=== PATIENT | male | born 1965 | race Caucasian/White ===

== ENCOUNTER 2020-10-06 07:56 | Emergency (ER) | payer MEDICAID, SELFPAY ==
[2020-10-06] VITALS (10 sets, daily range): BP systolic 101–122; BP diastolic 66–84; PULSE 65–102; RESP 16–20; TEMP 36.6; O2SAT 96–98; BMI 20.7
--- NOTE | 2020-10-06 08:12 | HMH.EDGENADL ---
ED Disposition Clinical Impression: COVID-19 virus infection, Lung mass Disposition: Left Against Medical Advice Condition on Discharge: Good Instructions: DI for COVID-19 (Suspected or Confirmed ) Additional Instructions: Quarantine for 10 days. Return to the emergency room if any severe shortness of breath, severe weakness, vomiting and unable to hold down medications. Levaquin as prescribed for possible pneumonia. Follow-up with your primary care provider to have a CT scan of your chest to further evaluate for a possible lung mass. Prescriptions: levoFLOXacin [Levaquin 750mg tablet] 750 mg PO DAILY #5 tab Transmission Status: Pending to [facility] Referrals: Moraima De [Primary Care Provider] - - Critical Care Critical Care Time: No Attestation: On , the high probability of a clinically significant, sudden or life threatening deterioration of the following system(s) required my full and direct attention, intervention and personal management. The time I documented below is in addition to time spent performing reported procedures but includes the following listed in this critical care notation. Medical Decision Making - Armando Inquiry Pt receiving controlled substance: No Vital Signs: 10/06/20 08:05 10/06/20 08:29 10/06/20 08:41 Temperature 97.8 F Temperature Source Oral Pulse Rate [Right] 79 65 80 Respiratory Rate 16 18 20 Blood Pressure [Right Arm] 112/84 122/80 122/80 Blood Pressure Mean [Right Arm] 93 94 94 Blood Pressure Source [Right Arm] Automatic Cuff Automatic Cuff Automatic Cuff Blood Pressure Position [Right Arm] Sitting Sitting Sitting 02 Sat by Pulse Oximetry 98 98 98 Oxygen Delivery Method Room Air Room Air 10/06/20 09:26 10/06/20 09:56 10/06/20 10:11 Temperature Temperature Source Pulse Rate [Right] 71 74 68 Respiratory Rate 18 18 18 Blood Pressure [Right Arm] 120/80 101/69 L 109/70 L Blood Pressure Mean [Right Arm] 93 79 83 Blood Pressure Source [Right Arm] Automatic Cuff Automatic Cuff Automatic Cuff Blood Pressure Position [Right Arm] Sitting Supine Sitting 02 Sat by Pulse Oximetry 98 98 97 Oxygen Delivery Method Room Air 10/06/20 10:30 10/06/20 11:00 10/06/20 12:00 Temperature Temperature Source Pulse Rate [Right] 70 74 80 Respiratory Rate 20 18 20 Blood Pressure [Right Arm] 114/72 110/66 115/79 Blood Pressure Mean [Right Arm] 86 80 91 Blood Pressure Source [Right Arm] Automatic Cuff Automatic Cuff Automatic Cuff Blood Pressure Position [Right Arm] Sitting Sitting Supine 02 Sat by Pulse Oximetry 97 97 97 Oxygen Delivery Method Room Air Room Air - Lab Data Lab Results 10/06/20 08:12: WBC 12.9 H, RBC 4.79, Hgb 14.6, Hct 43.5, MCV 90.9, MCH 30.5, MCHC 33.6, RDW 14.3, Plt Count 388, MPV 7.3 L, Neut % (Auto) 76.7, Lymph % (Auto) 16.5, Howard % (Auto) 5.0, Eos % (Auto) 1.3, Baso % (Auto) 0.7, Neut # (Auto) 9.9 H, Lymph # (Auto) 2.1, Howard # (Auto) 0.6, Eos # (Auto) 0.2, Baso # (Auto) 0.1 10/06/20 08:12: Sodium 134 L, Potassium 4.0, Chloride 99, Carbon Dioxide 31 H, Anion Gap 8.0, BUN 3 L, Creatinine 0.80, Estimated Creat Clear 93, Estimated GFR 100, Est GFR ( Amer) 121, Glucose 128 H, Calcium 9.1 10/06/20 08:12: SARS-CoV-2 IgG Ab (Rapid) Negative, SARS-CoV-2 IgM Ab (Rapid) Negative 10/06/20 08:12: Total Bilirubin 0.5, Direct Bilirubin 0.2, Conjugated Bilirubin 0.0, Indirect Bilirubin 0.3, Unconjugated Bilirubin 0.2, AST 35, ALT 25, Alkaline Phosphatase 84, Total Protein 7.2, Albumin 4.0 10/06/20 08:40: Influenza Type A Ag Negative, Influenza Type B Ag Negative 10/06/20 09:25: Urine Color Yellow, Urine Appearance Clear, Urine pH 8.0, Ur Specific [place] 1.010, Urine Protein Negative, Urine Glucose (UA) Negative, Urine Ketones Negative, Urine Blood Negative, Urine Nitrate Negative, Urine Bilirubin Negative, Urine Urobilinogen 0.2, Ur Leukocyte Esterase Negative, Urine RBC None, Urine WBC None, Ur Squamous Epith Cells None, Urine Bacteria None
[2020-10-06 08:30] LABS: Basophils # 0.1 K/mm3 (0-0.2); Basophils % 0.7 % (0.1-2.0); Eosinophils # 0.2 K/mm3 (0.0-0.4); Eosinophils % 1.3 % (0.1-12.0); Hematocrit 43.5 % (42.0-52.0); Hemoglobin 14.6 g/dL (14.1-18.0); Lymphocytes # 2.1 K/mm3 (0.7-4.5); Lymphocytes % 16.5 % (10-50); Mean Corpuscular HGB Conc 33.6 g/dL (31.8-35.4); Mean Corpuscular Hemoglobin 30.5 pg (27.0-31.2); Mean Corpuscular Volume 90.9 fl (80-94); Mean Platelet Volume 7.3 fl (7.4-10.4); Monocytes # 0.6 K/mm3 (0.1-1.0); Neutrophils # 9.9 K/mm3 (1.8-7.8); Neutrophils % 76.7 % (37.0-80.0); Platelet Count 388 K/mm3 (142-424); Red Blood Count 4.79 M/mm3 (4.60-6.20); Red Cell Distribution Width 14.3 % (11.5-17.5); White Blood Count 12.9 K/mm3 (4.8-10.8)
--- NOTE | 2020-10-06 08:38 | CT_ITS ---
Procedure: CT ABDOMEN PELVIS W CON Referring Doctor: Lang Aguilar Patient Age:55Y CLINICAL INDICATION: abdo pain, RLQ tenderness COMPARISON: No exams were available for comparison TECHNIQUE: 70 cc 7 IV contrast but no oral contrast given Helical axial images obtained with sagittal and coronal reformats. All CT scans at the facility use one or more dose reduction, viz: automated exposure control, ma/kV adjustment per patient size (including targeted exams where dose is matched to indication, i.e. head), or iterative reconstruction technique. FINDINGS: Lower thorax: The most likely atelectasis accounts for minimal density right posterior sulcus at the posterior RLL posterior sulcus. Underlying emphysematous changes noted. Heart normal size 2 ABDOMEN: Liver: No masses or biliary dilatation. Mild fatty changes liver a. Liver upper normal in size the the left lobe extending beneath the left hemidiaphragm the Gallbladder: Nondistended. No radio opaque stones. The common duct normal the the the Pancreas: No masses or peripancreatic fluid collections. Spleen: unremarkable the Adrenals: unremarkable tract Both kidneys appears satisfactory-no calculi nor obstruction. Normal renal enhancement. Ureters unremarkable. Urinary bladder.-Mild diffuse wall thickening suggest correlating with urinalysis is could reflect a cystitis but prostate, moderate size of 4.1 cm transverse the. ---GI tract. Stomach: Generous wall thickness stomach with mild enhancement of the gastric wall appearance could reflect gastritis but more most likely reflects lack distension. Duodenal loop unremarkable. Small bowel: No significant findings. Terminal ileum region satisfactory, unremarkable Large bowel. No acute findings. Minimal stool throughout the colon there may a few tiny early diverticuli but minimal unimpressive. Generous wall thickness of the descending colon most likely reflecting its lack of distension.. Appendix is retrocecal and appears normal with no appendicitis evident Peritoneum: No abnormal fluid collections. No obvious inflammatory changes. No free air. Lymph nodes: No enlarged lymph nodes apparent. Vasculature: Atherosclerotic calcification aorta and iliacs the.. Generous caliber mild distended IVC a-nonspecific. The a. No retroperitoneal hemorrhage evident. Bones: No acute fracture. No lesions. The the the the the the the the the the IMPRESSION: . Appendix visualized and normal the no acute findings right lower quadrant . Mild diffuse wall thickening urinary bladder which could reflect cystitis-recommend correlation with urinalysis the . Generous wall thickness of the stomach with mild enhancement; most likely merely reflecting lack of distension of stomach but of conceivably could reflect a mild gastritis. Clinical correlation required Dictated by: Perfecto Pompa MD 10/06/2020 09:44 Perfecto Pompa MD in [place] 10/06/2020 09:44
--- NOTE | 2020-10-06 08:38 | XR_ITS ---
PROCEDURE: XR CHEST 2V CLINICAL HISTORY: cough COMPARISON: No exams were available for comparison FINDINGS: The cardiomediastinal silhouette and pulmonary vascularity are within normal limits. The lungs are clear without infiltrates, suspicious nodules, or pleural effusions. There are mild streaky opacities in the right upper lobe and right apex likely representing postinflammatory scarring however there is a strong clinical suspicion of possible pneumonia a lordotic film of the chest would be helpful for better evaluation. No acute bony abnormalities. IMPRESSION: Probable postinflammatory scarring right apex however see discussion above regarding the follow-up a lordotic chest Dictated by: Dr. Sebastian Soto MD 10/06/2020 09:55 Dr. Sebastian Soto MD in [place] 10/06/2020 09:55
[2020-10-06 08:42] LABS: Blood Urea Nitrogen 3 mg/dl (9-20); Calcium 9.1 mg/dl (8.4-10.2); Carbon Dioxide 31 mmol/L (22.0-30.0); Chloride 99 mmol/L (98-107); Creatinine Clearance Estimated 93 mL/min (50-200); Estimated Glomerular Filt Rate 100 ml/min (>60); GFR (African American) 121 ML/MIN (>60); Glucose 128 mg/dl (74-100); Sodium 134 mmol/L (136-145)
[2020-10-06 09:11] LABS: Coronavirus 19 IgG Antibody Negative (Negative); Coronavirus 19 IgM Antibody Negative (Negative)
[2020-10-06 09:26] LABS: Alanine Aminotransferase 25 U/L (12-78); Alkaline Phosphatase 84 U/L (38-126); Aspartate Amino Transferase 35 U/L (17-59); Bilirubin,Direct 0.2 mg/dl (0.0-0.4); Bilirubin,Indirect 0.3 mg/dL (0.0-0.9); Bilirubin,Total 0.5 mg/dl (0.2-1.3); Bilirubin,Unconjugated 0.2 mg/dL (0.0-1.1); Total Protein,Serum 7.2 g/dl (6.3-8.2)
[2020-10-06 09:37] LABS: Microscopic, Urine URINE MICROSCOPIC (MICROSCOPIC)
[2020-10-06 09:41] LABS: Appearance,Urine CLEAR (Clear); Bilirubin,Urine Negative (Negative); Blood, Urine Negative (Negative); Color,Urine YELLOW (Yellow); Glucose,Urine (UA) Negative (Negative); Ketones,Urine Negative (Negative); Leukocyte Esterase,Urine Negative (Negative); Nitrate,Urine Negative (Negative); Protein,Urine Negative (Negative); Urobilinogen,Urine 0.2 EU/dl (0.2)
--- NOTE | 2020-10-06 10:05 | XR_ITS ---
PROCEDURE: XR CHEST W APICAL LORDOTIC CLINICAL HISTORY: scarring vs infiltrate apex, radiologist recomm. COMPARISON: CR XR CHEST 2V from 10/06/2020 FINDINGS: The lordotic projection allows better visualization of the lung apices and there is an apparent mass right upper lobe with somewhat ill-defined borders with streaky opacities extending from the right hilum superiorly to the mass. Certainly a developing neoplastic process cannot be excluded possibly with some surrounding pneumonitis. Suggest follow-up nonemergent CT scan of the chest for better evaluation. IMPRESSION: Probable right upper lobe mass with possible associated pneumonitis Dictated by: Dr. Sebastian Soto MD 10/06/2020 11:36 Dr. Sebastian Soto MD in [place] 10/06/2020 11:36
--- NOTE | 2020-10-06 11:16 | PC.NURSE ---
Notified pt positive for covid
== END 2020-10-06 13:15 | disposition left against medical advice (07) ==
PROVIDERS: Emergency Provider Emergency Medicine; PCP Family Medicine
DX: U07.1 COVID-19 (principal); R91.1 Solitary pulmonary nodule; F17.210 Nicotine dependence, cigarettes, uncomplicated
CPT/HCPCS: 71046; 71047; 74177; 80048; 80076; 81001; 85025; 86328; 87275; 87276; 96365; 96375; 99284; J2405; Q9967; U0003

== ENCOUNTER 2021-05-26 14:17 | Emergency (ER) | payer MEDICAID, SELFPAY ==
[2021-05-26 14:19] VITALS: BP 100/50; PULSE 101; RESP 18; TEMP 36.7; O2SAT 97; BMI 22.6
--- NOTE | 2021-05-26 15:00 | XR_ITS ---
PROCEDURE INFORMATION: Exam: XR Left Ankle Exam date and time: 05/26/2021 3:00 PM Age: 56 years old Clinical indication: Patient HX: Left ankle pain for a week, no known injury. PT said he stands a lot. TECHNIQUE: Imaging protocol: XR Left ankle. Views: 3 or more views. COMPARISON: CR XR TIBIA FIBULA LT 2V 05/26/2021 3:01 PM FINDINGS: Bones/joints: Normal. Soft tissues: Normal. IMPRESSION: No acute findings.
--- NOTE | 2021-05-26 15:00 | XR_ITS ---
PROCEDURE INFORMATION: Exam: XR Left Tibia and Fibula Exam date and time: 05/26/2021 3:00 PM Age: 56 years old Clinical indication: Patient HX: Pain in left lower leg for a week, no known injury. TECHNIQUE: Imaging protocol: XR Left tibia and fibula. Views: 2 views. COMPARISON: No relevant prior studies available. FINDINGS: Bones/joints: No acute fracture. No dislocation. Soft tissues: Normal. IMPRESSION: No acute findings.
--- NOTE | 2021-05-26 16:16 | HMH.EDEXTP ---
ED Disposition Clinical Impression: Strain of left calf muscle Left ankle sprain Qualifiers: Encounter type: initial encounter Involved ligament of ankle: other ligament Qualified Code(s): S93.492A - Sprain of other ligament of left ankle, initial encounter Disposition: Home, Self-Care Condition on Discharge: Good Instructions: DI for Muscle Strain Prescriptions: Ibuprofen [Ibuprofen 800mg Tablet] 800 mg PO TIDP PRN #20 tab PRN Reason: Moderate Pain Transmission Status: Pending to [facility] Referrals: Moraima De [Primary Care Provider] - - Critical Care Critical Care Time: No Attestation: On 05/26/21, the high probability of a clinically significant, sudden or life threatening deterioration of the following system(s) required my full and direct attention, intervention and personal management. The time I documented below is in addition to time spent performing reported procedures but includes the following listed in this critical care notation. Medical Decision Making - Medical Records Medical records reviewed: Yes: I reviewed the patient's medical records. - Armando Inquiry Pt receiving controlled substance: No Vital Signs: 05/26/21 14:19 Temperature 98.1 F Temperature Source Oral Pulse Rate [Right] 101 H Respiratory Rate 18 Blood Pressure [Right Arm] 100/50 L Blood Pressure Mean [Right Arm] 66 02 Sat by Pulse Oximetry 97 Orders (Tests/Meds): ED MEDICATIONS Discontinued Medications Generic Name Dose Route Start Last Admin Trade Name Freq PRN Reason Stop Dose Admin Ibuprofen 800 mg 05/26/21 15:00 Ibuprofen 400 Mg Tablet PO 05/26/21 15:01 ONCE ONE - Radiology Data #1 Image(s): Tib/Fib, Ankle Image Reviewed: Yes I reviewed the patient's radiology results, Yes I reviewed the patient's radiology image, Yes I have reviewed radiologist's interpretation Preliminary Findings: Normal/NAD, No Fracture Seen - Reevaluation(s) Time: 16:19 Reevaluation #1: On reevaluation, the patient is feeling much better. Pain improved. X-rays unremarkable. Patient to follow-up with PCP in 48 hours. Given strict return precautions. Verbalized understanding. Medical Decision Narrative: 56-year-old male presented to the emergency department with some left leg pain. Patient has had overuse injuries lately. Patient be musculoskeletal in nature. No asymmetrical swelling. Work-up initiated. Extremity Problem HPI - General Chief complaint: Extremity Injury, Lower Stated complaint: ankle pain up to the thigh area, and left shoulder Time Seen by Provider: 05/26/21 14:25 Mode of Arrival: Family Vehicle Limitations: No Limitations Description of Symptoms (Recalled from ER Triage Doc. by RN): Patient c/o left leg pain without injury for the last four days. Patient reports the pain originated in the ankle and has migrated to the thigh. Upon assessment, patient has no pain in calve with palpation and does not appear to have redness in left leg. Patient ambulatory in ED triage to patient room. - History of Present Illness HPI Narrative: This is a 56-year-old male presented to the emergency department with a left lower extremity discomfort. Patient states that he has been walking an increased amount over the last 4 days. States that his pain in his left calf has been worsening. States that it is worse when he walks. He denies any direct trauma, but has had significant overuse compared to normal. He states that it is a dull pain that radiates in his left To the top of the left calf and down into the ankle. Patient is still able to walk, however does elicit some pain. He is not have any associated chest pain or shortness of breath. No cough or hemoptysis. No headache or change in vision. No focal weakness. No fevers or chills. - Related Data Previous Rx's Medication Instructions Recorded levoFLOXacin [Levaquin 750mg 750 mg PO DAILY #5 tab 10/06/20 tablet
[2021-05-26 16:35] VITALS: BP 132/73; PULSE 76; RESP 16; TEMP 36.8; O2SAT 98
== END 2021-05-26 16:41 | disposition home or self-care (01) ==
PROVIDERS: Emergency Provider Emergency Medicine; PCP Family Medicine
DX: S93.492A Sprain of other ligament of left ankle, initial encounter (principal)
CPT/HCPCS: 73590; 73610; 99282

== ENCOUNTER → 2021-06-12 09:28 | Outpatient (CLI) | payer MEDICAID, SELFPAY ==
--- NOTE | 2021-06-12 09:33 | XR_ITS ---
PROCEDURE: XR WRIST LT MIN 3V CLINICAL INDICATION: left wrist pain COMPARISON: No exams were available for comparison FINDINGS: No fracture or dislocation. No lytic or blastic change. There is normal mineralization. There are mild osteoarthritic changes at the scapho trapezium joint and 1st metacarpal-carpal joint Other findings:None. IMPRESSION: Minimal osteoarthritic change Dictated by: Lenin Davies MD 06/12/2021 11:54 Lenin Davies MD in [place] 06/12/2021 11:54
== END ==
PROVIDERS: PCP Family Medicine; Visit Provider Orthopaedic Surgery
DX: M25.532 Pain in left wrist (principal)
CPT/HCPCS: 73110

== ENCOUNTER 2021-06-12 10:56 | Outpatient (RCR) | payer MEDICAID, SELFPAY | END 2021-06-12 12:00 | disposition home or self-care (01) | LOC: OT 10:56 | PROVIDERS: Visit Provider Orthopaedic Surgery | DX: M25.532 Pain in left wrist (principal); R20.0 Anesthesia of skin | CPT/HCPCS: 97763 ==

== ENCOUNTER → 2021-07-05 09:09 | Outpatient (CLI) | payer MEDICAID, SELFPAY ==
--- NOTE | 2021-07-05 09:13 | US_ITS ---
APPROVED REPORT Exam Type: Lower Extremity Segmental Pressures Harvesting Supervisor: Sunshine Mae RVT Indications Claudication: Left Rest Pain: Left Current Smoker CLAUDICATION LLE,COLD LT FOOT Risk Factors Current Smoker Pressures/Indices Right Indices Left Indices Brachial 113.00 mmHg Brachial 108.00 mmHg Low Thigh 116.00 mmHg 1.03 Low Thigh 57.00 mmHg 0.50 Calf 112.00 mmHg 0.99 Calf 53.00 mmHg 0.47 Ankle(PT) 116.00 mmHg 1.03 Ankle(PT) 43.00 mmHg 0.38 Ankle(DP) 114.00 mmHg 1.01 Ankle(DP) 33.00 mmHg 0.29 Digit 70.00 mmHg 0.62 Digit 25.00 mmHg 0.22 Findings RT ANGEL:1.03 LT ANGEL:0.38 RT TBI:0.62 LT TBI:0.22 NORMAL PULSES ON THE RIGHT DECREASED PULSES ON THE LEFT DAMPANED WAVEFORMS ON THE LEFT. NORMAL WAVEFORMS ON THE RIGHT SEVERE ARTERIAL DISEASE OF THE LEFT LOWER EXTREMITY. Conclusion RT ANGEL:1.03 LT ANGEL:0.38 RT TBI:0.62 LT TBI:0.22 NORMAL PULSES ON THE RIGHT DECREASED PULSES ON THE LEFT DAMPANED WAVEFORMS ON THE LEFT. NORMAL WAVEFORMS ON THE RIGHT SEVERE ARTERIAL DISEASE OF THE LEFT LOWER EXTREMITY. Electronically signed by : Lenin Davies MD 07/05/2021 09:47:41
== END ==
PROVIDERS: PCP Family Medicine; Visit Provider Family Medicine
DX: I70.213 Atherosclerosis of native arteries of extremities with intermittent claudication, bilateral legs (principal)
CPT/HCPCS: 93923

== ENCOUNTER 2021-12-05 13:46 | Emergency (ER) | payer MEDICAID, SELFPAY ==
[2021-12-05 13:47] VITALS: BP 114/79; PULSE 92; RESP 18; TEMP 36.9; O2SAT 98; BMI 22.7
[2021-12-05 14:00] VITALS: BP 111/83; PULSE 88; RESP 18; O2SAT 99
--- NOTE | 2021-12-05 14:28 | XR_ITS ---
FINAL REPORT CLINICAL HISTORY: pain FINDINGS: LEFT SHOULDER Three views demonstrate no acute fracture or dislocation. There is mild acromioclavicular and glenohumeral joint degenerative change. The visualized bony structures are well aligned. No soft tissue abnormality is seen. IMPRESSION: Mild degenerative changes. Reviewed, Interpreted and Dictated by Kings Pittman III, MD Transcribed by Rosa Dailey Authenticated by Kings Pittman III, MD on 12/05/2021 03:35:28 PM [facility]
[2021-12-05 14:30] VITALS: BP 118/88; PULSE 82; O2SAT 98
--- NOTE | 2021-12-05 14:36 | PC.NURSE ---
Pt returned from Rad
[2021-12-05 14:37] VITALS: BP 127/90; PULSE 80; O2SAT 98
--- NOTE | 2021-12-05 14:39 | HMH.EDGENADL ---
ED Disposition Clinical Impression: Left shoulder strain Qualifiers: Encounter type: initial encounter Qualified Code(s): S46.912A - Strain of unspecified muscle, fascia and tendon at shoulder and upper arm level, left arm, initial encounter Disposition: Home, Self-Care Condition on Discharge: Good Instructions: DI for Shoulder Sprain Prescriptions: Ibuprofen [Ibuprofen 800mg Tablet] 800 mg PO TIDP PRN #20 tab PRN Reason: Moderate Pain Transmission Status: Pending to [facility] methocarbamoL [Methocarbamol 500mg Tablet] 1,000 mg PO TID 10 Days #60 tab Transmission Status: Pending to [facility] Referrals: Provider,MD Jesus [Primary Care Provider] - Yayo Ventura MD [Staff Physician] - - Critical Care Critical Care Time: No Attestation: On 12/05/21, the high probability of a clinically significant, sudden or life threatening deterioration of the following system(s) required my full and direct attention, intervention and personal management. The time I documented below is in addition to time spent performing reported procedures but includes the following listed in this critical care notation. Medical Decision Making - Medical Records Medical records reviewed: Yes: I reviewed the patient's medical records. - Armando Inquiry Pt receiving controlled substance: Yes Armando was queried for this patient: No Reason not queried -: Emergent pt cond-no time Risks and benefits of using a controlled substance: were discussed with pt by me Vital Signs: 12/05/21 13:47 12/05/21 14:00 12/05/21 14:30 Temperature 98.4 F Temperature Source Oral Pulse Rate 88 82 Pulse Rate [Right Radial] 92 H Respiratory Rate 18 18 Blood Pressure 111/83 118/88 Blood Pressure [Right Arm] 114/79 Blood Pressure Mean 91 Blood Pressure Mean [Right Arm] 90 Blood Pressure Source [Right Arm] Automatic Cuff Blood Pressure Position [Right Arm] Sitting 02 Sat by Pulse Oximetry 98 99 98 Oxygen Delivery Method Room Air 12/05/21 14:37 Temperature Temperature Source Pulse Rate 80 Pulse Rate [Right Radial] Respiratory Rate Blood Pressure 127/90 Blood Pressure [Right Arm] Blood Pressure Mean Blood Pressure Mean [Right Arm] Blood Pressure Source [Right Arm] Blood Pressure Position [Right Arm] 02 Sat by Pulse Oximetry 98 Oxygen Delivery Method Orders (Tests/Meds): ED MEDICATIONS Discontinued Medications Generic Name Dose Route Start Last Admin Trade Name Ines PRN Reason Stop Dose Admin Hydrocodone Bitart/Acetaminophen 2 tab 12/05/21 14:28 12/05/21 14:37 Hydrocodone/Apap 5/325 Mg Tablet PO 12/05/21 14:29 2 tab ONCE ONE Administration Methocarbamol 1,000 mg 12/05/21 14:28 12/05/21 14:38 Methocarbamol 500mg Tablet PO 12/05/21 14:29 1,000 mg ONCE STA Administration - Radiology Data #1 Image(s): Shoulder Image Reviewed: Yes I reviewed the patient's radiology results, Yes I reviewed the patient's radiology image, Yes I have reviewed radiologist's interpretation IMPRESSION: Mild degenerative changes. - Reevaluation(s) Time: 15:39 Reevaluation #1: On reevaluation, the patient's pain is improved. There is no obvious deformity on x-ray. Has some chronic degenerative changes. Patient will follow up with orthopedic surgery. Given strict return precautions. Verbalized understanding. Medical Decision Narrative: 56-year-old male presented with some left shoulder pain. Pain is reproducible on passive range of motion. I do believe patient has bony injury versus rotator cuff tear. Patient provided analgesics and muscle relaxers. Work-up initiated. General Adult HPI - General Chief complaint: PAIN Stated complaint: lt arm weakness/pain Time Seen by Provider: 12/05/21 13:50 Mode of Arrival: Ambulatory Limitations: No Limitations Description of Symptoms (Recalled from ER Triage Doc. by RN): Pt c/o left shoulder pain that began last night.
[2021-12-05 16:09] VITALS: BP 112/57; PULSE 79; RESP 16; TEMP 36.6; O2SAT 98
== END 2021-12-05 16:10 | disposition home or self-care (01) ==
PROVIDERS: Emergency Provider Emergency Medicine
DX: S43.402A Unspecified sprain of left shoulder joint, initial encounter (principal); M79.622 Pain in left upper arm; M62.512 Muscle wasting and atrophy, not elsewhere classified, left shoulder; F17.210 Nicotine dependence, cigarettes, uncomplicated; Z79.899 Other long term (current) drug therapy; Z88.5 Allergy status to narcotic agent
CPT/HCPCS: 73030; 99283

== ENCOUNTER 2022-02-25 11:58 | Emergency (ER) | payer MEDICAID, SELFPAY ==
[2022-02-25 12:10] VITALS: BP 112/78; PULSE 84; RESP 19; TEMP 36.8; O2SAT 99; BMI 22.5
--- NOTE | 2022-02-25 12:13 | XR_ITS ---
FINAL REPORT CLINICAL HISTORY: pain and swelling FINDINGS: AP, oblique, and lateral views of the right ankle were obtained. There is no prior exam for comparison. There is no fracture or dislocation. The ankle mortise is intact. There is mild lateral soft tissue edema which is nonspecific. IMPRESSION: Mild lateral soft tissue edema without acute osseous abnormality of the right ankle. Reviewed, Interpreted and Dictated by Kim Matamoros MD Transcribed by Maggie Goode Authenticated by Kim Matamoros MD on 02/25/2022 01:17:[address] [facility]
--- NOTE | 2022-02-25 12:49 | HMH.EDUTC ---
[facility] Disposition Clinical Impression: Right ankle sprain Qualifiers: Encounter type: initial encounter Involved ligament of ankle: unspecified ligament Qualified Code(s): S93.401A - Sprain of unspecified ligament of right ankle, initial encounter Disposition: Home, Self-Care Condition on Discharge: Good Instructions: How to Choose and Use a Cane, How to Use a Walking Boot Additional Instructions: *weight bearing as tolerated *RICE, Rest the extremity, Ice 15-20 minutes 3-4 times daily, Compress- wear the rigo wrap as discussed as much as possible to help reduce swelling and pain, Elevate the extremity when at rest *Walking boot is for support and help control swelling, use it except in the shower. Be sure that is not to tight but not to loose either *Elevate when resting *Ibuprofen as directed every 6-8 hours as needed for pain an inflammation. If need something more can take Tylenol in between doses of Ibuprofen to help Immediately follow up with your family doctor for new or worsening of symptoms, or no noticeable improvement over the next 3-5 days Follow up with Family Doctor for further evaluation and testing if no improvement Return if needed Straight to ER if any life threatening symptoms Referrals: Gordy Watson [Primary Care Provider] - As needed Time of Disposition: 13:33 Medical Decision Making - Armando Inquiry Pt receiving controlled substance: No Armando was queried for this patient: No Vital Signs: 02/25/22 12:10 02/25/22 13:43 Temperature 98.2 F 98.2 F Temperature Source Oral Pulse Rate 84 Pulse Rate [Right Brachial] 84 Respiratory Rate 19 19 Blood Pressure 112/78 Blood Pressure [Right Arm] 112/78 Blood Pressure Mean [Right Arm] 89 Blood Pressure Source [Right Arm] Automatic Cuff Blood Pressure Position [Right Arm] Sitting 02 Sat by Pulse Oximetry 99 Oxygen Delivery Method Room Air - Lab Data Lab results reviewed: Yes: I reviewed the patient's lab results. Lab Results 02/25/22 12:30: Uric Acid 3.4 L - Radiology Data #1 Image(s): Ankle Image Reviewed: Yes I have reviewed radiologist's interpretation IMPRESSION: Mild lateral soft tissue edema without acute osseous abnormality of the right ankle. Medical Decision Narrative: DIscussed with patient and recommended Venous Doppler due to history of DVT and patient declined states that he didnt want it and didnt feel like it did when he had one before and patient educated and advised of risks even and still declined Venous Doppler States that he may have stepped in hole and he would follow up with Family Doctor if no improvement [facility] HPI - General Stated complaint: lt leg/foot pain and swelling Time Seen by Provider: 02/25/22 12:25 Mode of Arrival: Ambulatory Source of Information: Patient Limitations: No Limitations Description of Symptoms (Recalled from Triage Doc. by RN): PATIENT C/O PAIN AND SWELLING TO RIGHT ANKLE SINCE YESTERDAY HEENT Symptoms (Recalled from RN notes): No Resp Symptoms (Recalled from RN notes): No Skin Symptoms (Recalled from RN notes): No MS Symptoms (Recalled from RN notes): Yes Functional Status (Recalled from RN notes): WNL - History of Present Illness Provider Complaint: Patient states that he was walking fine day before yesterday and yesterday morning but when he woke up he was having pain and swelling in his right ankle and hurt when he would try to walk on it States that he doesnt recall doing anything to hurt it States that he came in to get it checked out - Related Data Allergies Allergy/AdvReac Type Severity Reaction Status Date / Time codeine Allergy Mild Verified 06/25/21 13:51 - Worker's Comp Is this a Worker's Comp case?: No [facility] History - Hepatitis A Screen Attestation statement:: This patient has been screened for Hepatitis A risk factors. I have reviewed the patient's past medical history: Yes Other Surgeries: Yes: No Previous Surgery Comment: Left hand rodríguez
[2022-02-25 12:58] LABS: Uric Acid 3.4 mg/dl (3.5-8.5)
[2022-02-25 13:43] VITALS: BP 112/78; PULSE 84; RESP 19; TEMP 36.8; O2SAT 99
== END 2022-02-25 13:46 | disposition home or self-care (01) ==
PROVIDERS: Emergency Provider Nurse Practitioner; PCP Family Medicine
DX: S93.401A Sprain of unspecified ligament of right ankle, initial encounter (principal); Z88.6 Allergy status to analgesic agent
CPT/HCPCS: 73610; 84550; 99212; G0463

== ENCOUNTER 2023-05-04 06:24 | Emergency (ER) | payer MEDICAID, SELFPAY ==
[2023-05-04 06:26] VITALS: BP 126/79; PULSE 69; RESP 20; TEMP 36.4; O2SAT 99; BMI 21.4
--- NOTE | 2023-05-04 06:39 | CT_ITS ---
FINAL REPORT TECHNIQUE: After the administration of intravenous contrast, axial images were obtained through the abdomen and pelvis by computed tomography. This study was performed with technique to keep radiation doses as low as reasonably achievable, (ALARA). Individualized dose reduction techniques using automated exposure control or adjustment of the MA and/or KV according to the patient's size were employed. CLINICAL HISTORY: abd pain, vomiting FINDINGS: Abdomen: The lung bases demonstrate moderate emphysema. There is a 5 mm pulmonary nodule at the lateral left lung base. The liver is normal in size and attenuation. There is mild, nonspecific gallbladder wall thickening. No biliary dilatation is seen. The spleen is unremarkable. The adrenals are normal. The pancreas is unremarkable. The kidneys enhance appropriately. The aorta is normal in caliber. There is no free fluid or adenopathy. Pelvis: The appendix is normal. The urinary bladder is unremarkable. There is no free fluid or adenopathy. IMPRESSION: 5 mm pulmonary nodule. Recommend 6-month follow-up chest CT. Mild, nonspecific gallbladder wall thickening without biliary ductal dilatation. Reviewed, Interpreted and Dictated by Kings Pittman III, MD Transcribed by Shirlene Amador Authenticated and [facility]
--- NOTE | 2023-05-04 06:47 | XR_ITS ---
FINAL REPORT CLINICAL HISTORY: Shoulder pain COMPARISON: 12/05/2021 FINDINGS: LEFT SHOULDER 3 views of the left shoulder were obtained. There is no acute fracture or dislocation. Mild degenerative changes are noted. Visualized joint spaces are normally aligned. Soft tissues are unremarkable. IMPRESSION: No acute bony abnormality. Reviewed, Interpreted and Dictated by Kings Pittman III, MD Transcribed by Shirlene Amador Authenticated and [facility]
--- NOTE | 2023-05-04 06:47 | HMH.EDGENADL ---
Discharge Plan Disposition Patient Disposition: Home, Self-Care Prescriptions Prescriptions: New ondansetron HCl 4 mg tablet 4 mg PO Q6H PRN (Reason: nausea and vomiting) Qty: 10 0RF Referrals Follow up/Referrals: Gordy Watson [Primary Care Provider] - See instructions Clinical Impressions Clinical Impression: Abdominal pain, Nausea & vomiting Instructions Patient Instructions: DI for Diarrhea and Traveler's Diarrhea -- Adult, DI for Diarrhea and Traveler's Diarrhea -- Child, DI for Nausea -- Adult, DI for Nausea -- Child Discharge ED Provider: Eliud Evans General Adult HPI <Edwin Nicholas MD - Last Filed: 05/04/23 07:22> General Chief complaint: Nausea/Vomiting/Diarrhea Stated complaint: Vomiting,hot,cold,shakes Time Seen by Provider: 05/04/23 06:30 Mode of Arrival: Ambulatory Source of Information: Patient Limitations: No Limitations Description of Symptoms (Recalled from ER Triage Doc. by RN): Pt presents with complaints of N/V/D that started in the middle of the night, took a phenergan and it made him sick. Pt also states his left shoulder has been hurting for 3-4 days after lifting materials. 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 Reports it awoke him from sleep. Reports multiple episodes of vomiting in route to ER. Denies fevers. Denies current chest pain or shortness of breath. Patient also reports left-sided shoulder pain and abnormal sensation for the last 3 to 4 days. He reports that he was junking and exerting himself when he believes he strained his left shoulder. Reports no other trauma. Has been taking ibuprofen at home for pain without significant improvement. Related Data Previous Rx's Medication Instructions Recorded ondansetron HCl 4 mg tablet 4 mg PO Q6H PRN nausea and 05/04/23 vomiting #10 tabs Allergies Allergy/AdvReac Type Severity Reaction Status Date / Time codeine Allergy Mild Verified 06/25/21 13:51 PFSH <Edwin Nicholas MD - Last Filed: 05/04/23 07:22> PFS Disclaimer: The information contained in this section may have been updated after the patient was seen, as this information can be updated by other users. 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 Smoking Status: Current every day smoker tobacco type: cigarettes packs per day: 1 alcohol intake: never current occupational status: other Travel in the last 8 weeks: None <Edwin Nicholas MD - Last Filed: 05/04/23 07:22> ROS Obtained: Yes All systems reviewed & no additional complaints except as documented Physical Exam <Edwin Nicholas MD - Last Filed: 05/04/23 07:22> General General appearance: alert and in no apparent distress Head Head exam: atraumatic and normocephalic Eye Eye exam: Present normal appearance, PERRL and EOMI ENT ENT exam: Present normal oropharynx and normal external ear exam Neck Neck exam: Present normal inspection and full ROM Chest Chest inspection: Present normal inspection and symmetric chest wall rise; Absent tenderness Respiratory Respiratory exam: Present normal lung sounds bilaterally; Absent respiratory distress Cardiovascular Cardiovascular exam: Present regular rate and normal rhythm Abdominal Exam Abdominal exam: Present soft and tenderness (Generalized); Absent distention or guarding Extremities Exam Extremities exam: Present normal inspection and other (Mild pain with range of motion of the left shoulder, mild pain with palpation. Intact distal neurovascular exam.); Absent edema or joint swelling Back Exam Back exam: Present normal inspection; Absent tenderness, CVA tenderness (R) or CVA tenderness (L) Neurological Exam Neurological exam: Present alert and oriented X3; Absent motor sensory deficit Psychiatric Psychiatric exam: Present normal affect and normal mood Skin Skin exam: Present warm, dry and normal color Lymphatic Lymphatic Findings: no adenopathy
[2023-05-04 06:59] LABS: Basophils # 0.1 K/mm3 (0-0.2); Basophils % 0.8 % (0.1-2.0); Eosinophils # 0.2 K/mm3 (0.0-0.4); Eosinophils % 1.3 % (0.1-12.0); Hematocrit 46.3 % (42.0-52.0); Hemoglobin 14.8 g/dL (14.1-18.0); Lymphocytes % 15.4 % (10-50); Mean Corpuscular HGB Conc 31.9 g/dL (31.8-35.4); Mean Corpuscular Hemoglobin 28.8 pg (27.0-31.2); Mean Corpuscular Volume 90.4 fl (80-94); Mean Platelet Volume 7.3 fl (7.4-10.4); Monocytes % 7.6 % (1.7-9.3); Neutrophils # 9.9 K/mm3 (1.8-7.8); Platelet Count 345 K/mm3 (142-424); Red Blood Count 5.12 M/mm3 (4.60-6.20); Red Cell Distribution Width 13.7 % (11.5-17.5); White Blood Count 13.2 K/mm3 (4.8-10.8)
[2023-05-04 07:00] VITALS: BP 118/76; PULSE 71; O2SAT 99
[2023-05-04 07:07] LABS: Alanine Aminotransferase 17 U/L (12-78); Albumin Level 4.3 g/dl (3.5-5.0); Albumin/Globulin Ratio 1.3 (1.1-1.8); Alkaline Phosphatase 92 U/L (38-126); Anion Gap 8.1 mEq/L (5-15); Aspartate Amino Transferase 24 U/L (17-59); Bilirubin,Total 0.4 mg/dl (0.2-1.3); Blood Urea Nitrogen 4 mg/dl (9-20); Calcium 9.1 mg/dl (8.4-10.2); Carbon Dioxide 30 mmol/L (22.0-30.0); Chloride 101 mmol/L (98-107); Creatinine Clearance Estimated 106 mL/min (50-200); Estimated Glomerular Filt Rate 115 ml/min (>60); GFR (African American) 140 ML/MIN (>60); Globulin 3.3 g/dL (1.3-3.2); Glucose 119 mg/dl (74-100); Lipase 58 U/L (23-300); Potassium 4.1 mmoL/L (3.5-5.1); Sodium 135 mmol/L (136-145); Total Protein,Serum 7.6 g/dl (6.3-8.2)
[2023-05-04 07:20] LABS: Troponin I < 0.01 ng/ml (0.00-0.034)
--- NOTE | 2023-05-04 08:00 | ECG_ITS ---
APPROVED REPORT Exam: Resting ECG HR:64 bpm ECG Measurements Heart Rate 64 AXES AK 146 P 80 QRSd 90 QRS 38 QT 412 T 59 QTc 421 Conclusion SINUS RHYTHM Left Atrial abnormality LOW QRS VOLTAGE IN EXTREMITY LEADS [QRS DEFLECTION < 0.5 mV IN LIMB LEADS] BORDERLINE ECG UNCONFIRMED REPORT Electronically signed by : Killian García MD 05/04/2023 19:50:07
[2023-05-04 08:02] VITALS: BP 122/88; PULSE 65; O2SAT 96
[2023-05-04 08:29] LABS: Microscopic, Urine URINE MICROSCOPIC (MICROSCOPIC)
[2023-05-04 08:30] VITALS: BP 125/82; PULSE 68; O2SAT 97
[2023-05-04 08:32] LABS: Appearance,Urine CLEAR (Clear); Bilirubin,Urine Negative (Negative); Blood, Urine 1+ (Negative); Color,Urine YELLOW (Yellow); Glucose,Urine (UA) Negative (Negative); Ketones,Urine Negative (Negative); Leukocyte Esterase,Urine Negative (Negative); Nitrate,Urine Negative (Negative); Protein,Urine Negative (Negative); Specific Gravity, Urine <= 1.005 (1.005-1.030); Urobilinogen,Urine 0.2 EU/dl (0.2)
[2023-05-04 08:44] LABS: Squamous Epithelial Cell,Urine Occasional #/hpf (0-5); WBC,Urine Occasional #/hpf (0-3)
[2023-05-04 09:01] VITALS: BP 135/89; PULSE 70; RESP 20; O2SAT 98
[2023-05-04 09:48] VITALS: BP 129/91; PULSE 72; RESP 18; TEMP 36.7; O2SAT 99
== END 2023-05-04 09:49 | disposition home or self-care (01) ==
PROVIDERS: Emergency Medicine; Emergency Provider Emergency Medicine; PCP Family Medicine
DX: R10.84 Generalized abdominal pain (principal); R11.2 Nausea with vomiting, unspecified; F17.210 Nicotine dependence, cigarettes, uncomplicated
CPT/HCPCS: 73030; 74177; 80053; 81001; 83690; 84484; 85025; 93005; 96361; 96374; 96375; 99285; J2405; Q9967

== ENCOUNTER 2023-12-19 12:04 | Emergency (ER) | payer MEDICAID, SELFPAY ==
[2023-12-19 12:15] VITALS: BP 120/76; PULSE 80; RESP 20; TEMP 36.8; O2SAT 97; BMI 22.1
[2023-12-19 12:21] VITALS: BP 120/76; PULSE 80; RESP 20; TEMP 36.8; O2SAT 97
--- NOTE | 2023-12-19 12:25 | ED_ITS ---
Discharge Plan Disposition Patient Disposition: Home, Self-Care Condition: Good Prescriptions Prescriptions: New sulfamethoxazole-trimethoprim [Bactrim DS] 800-160 mg tablet 1 tab PO Q12H Qty: 20 0RF mupirocin 2 % ointment 1 applic topical BID Qty: 15 0RF Rx Instructions: apply to abscess bid No Action ondansetron HCl 4 mg tablet 4 mg PO Q6H PRN (Reason: nausea and vomiting) Qty: 10 0RF Referrals Follow up/Referrals: Provider,Referral, MD [Primary Care Provider] - See instructions Clinical Impressions Clinical Impression: Abscess Instructions Patient Instructions: Boil Discharge ED Provider: Eb ([facility])Arturo [facility] HPI General Stated complaint: bite on left arm Mode of Arrival: Ambulatory Source of Information: Patient Limitations: No Limitations Time Seen by Provider: 12/19/23 12:25 Description of Symptoms (Recalled from Triage Doc. by RN): PATIENT C/O POSSIBLE SPIDER BITE TO LEFT FOREARM X 2 DAYS HEENT Symptoms (Recalled from RN notes): No Resp Symptoms (Recalled from RN notes): No Skin Symptoms (Recalled from RN notes): Yes MS Symptoms (Recalled from RN notes): No Functional Status (Recalled from RN notes): WNL History of Present Illness Provider Complaint: 58 yr old male presents for spider bite to left forearm. pt states he was fine when he went to bed and when he woke up he had a red raised area and it has worsened over the last 2 days Related Data Previous Rx's Medication Instructions Recorded ondansetron HCl 4 mg tablet 4 mg PO Q6H PRN nausea and 05/04/23 vomiting #10 tabs mupirocin 2 % topical ointment 1 applic topical BID #15 grams 12/19/23 sulfamethoxazole 800 1 tab PO Q12H #20 tabs 12/19/23 mg-trimethoprim 160 mg tablet (Bactrim DS) Allergies Allergy/AdvReac Type Severity Reaction Status Date / Time codeine Allergy Mild Verified 06/25/21 13:51 Worker's Comp Is this a Worker's Comp case?: No [facility] Disclaimer: The information contained in this section may have been updated after the patient was seen, as this information can be updated by other users. 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 (Reviewed 12/19/23 @ 12:26 by Arturo Parson ([facility]), HOSTESS CASHIER) Smoking Status: Current every day smoker tobacco type: cigarettes packs per day: 1 alcohol intake: never current occupational status: other Travel in the last 8 weeks: None ROS Obtained: Yes All systems reviewed & no additional complaints except as documented Constitutional Constitutional: Reports system reviewed and no additional complaints, except as documented Eyes Eyes: Reports system reviewed and no additional complaints, except as documented ENT Ears, Nose, Mouth, and Throat: Reports system reviewed and no additional complaints, except as documented Cardiovascular Cardiovascular: Reports system reviewed and no additional complaints, except as documented Respiratory Respiratory: Reports system reviewed and no additional complaints, except as documented Gastrointestinal Gastrointestingal: Reports system reviewed and no additional complaints, except as documented Musculoskeletal Musculoskeletal: Reports system reviewed and no additional complaints, except as documented Integumentary/Breasts Skin/Breast: Reports system reviewed and no additional complaints, except as documented, Reports as per HPI and Reports wounds Neurologic Neurologic: Reports system reviewed and no additional complaints, except as documented Hematologic/Lymphatic Henatologic/Lymphatic: Reports system reviewed and no additional complaints, except as documented Allergic/Immunologic Allergic/Immunologic: Reports system reviewed and no additional complaints, except as documented Physical Exam General General appearance: alert and in no apparent distress Head Head exam: atraumatic Eye Eye exam: Present normal appearance and PERRL ENT ENT exam: Present normal exam, normal oropharynx, mucous membranes moist and TM's normal bilaterally Respiratory Respiratory exam: Present normal lung sounds bilaterally Cardiovascular Cardiovascular exam: Present regular rate and normal rhythm Neurological Exam Neurological exam: Present alert Skin Skin exam: Present warm Expanded Skin Exam Type of lesion: Present abscess Body image: 2 1. golf ball size red raised area Medical Decision Making Medical Records Medical records reviewed: Yes I reviewed the patient's medical records. Armando Inquiry Pt receiving controlled substance: No Armando was queried for this patient: No Vital Signs: 12/19/23 12:15 12/19/23 12:21 Temperature 98.2 F 98.2 F Temperature Source Oral Pulse Rate 80 Pulse Rate [Right Brachial] 80 Respiratory Rate 20 20 Blood Pressure 120/76 Blood Pressure [Right Arm] 120/76 Blood Pressure Mean [Right Arm] 90 Blood Pressure Source [Right Arm] Automatic Cuff Blood Pressure Position [Right Arm] Sitting 02 Sat by Pulse Oximetry 97 Oxygen Delivery Method Room Air
== END 2023-12-19 12:35 | disposition home or self-care (01) ==
PROVIDERS: Emergency Provider Nurse Practitioner Family
DX: L02.414 Cutaneous abscess of left upper limb (principal); S50.862S Insect bite (nonvenomous) of left forearm, sequela; W57.XXXS Bitten or stung by nonvenomous insect and other nonvenomous arthropods, sequela; F17.210 Nicotine dependence, cigarettes, uncomplicated
CPT/HCPCS: 99212; 99214; G0463

== ENCOUNTER 2024-12-12 15:55 | Emergency (ER) | payer MEDICAID, SELFPAY ==
[2024-12-12 16:40] VITALS: BP 108/77; PULSE 87; RESP 18; TEMP 36.8; O2SAT 98; BMI 21.4
[2024-12-12 16:50] LABS: Coronavirus 19, PCR Not Detected (NotDetected); Influenza A, PCR Not Detected (NotDetected); Influenza B, PCR Not Detected (NotDetected)
--- NOTE | 2024-12-12 17:02 | ED_ITS ---
<Statement entered by Corrina Ford DO - 12/12/24 23:08> I was consulted by the BRISEYDA, and we discussed the complexity of the problems being addressed. I approved the treatment and management plan for this patient's care in the emergency department, thus performing a substantive portion of the medical decision making. Corrina Ford DO Discharge Plan Disposition Patient Disposition: Home, Self-Care Condition: Good Prescriptions Prescriptions: New doxycycline hyclate 100 mg capsule 100 mg PO BID 10 Days Qty: 20 0RF prednisone 50 mg tablet 50 mg PO DAILY 5 Days Qty: 5 0RF [id number] [Bromfed DM] 2-30-10 mg/5 mL syrup 5 ml PO Q4H PRN (Reason: sinus symptoms) Qty: 118 0RF No Action ondansetron HCl 4 mg tablet 4 mg PO Q6H PRN (Reason: nausea and vomiting) Qty: 10 0RF sulfamethoxazole-trimethoprim [Bactrim DS] 800-160 mg tablet 1 tab PO Q12H Qty: 20 0RF mupirocin 2 % ointment 1 applic topical BID Qty: 15 0RF Rx Instructions: apply to abscess bid Referrals Follow up/Referrals: Provider,Referral, MD [Primary Care Provider] - See instructions Activity Restrictions/Add. Instructions Additional Instructions/Restrictions: I have sent in steroids a cough medicine and antibiotic. Please take your antibiotic till its gone. If you have continued new or worsening signs or symptoms follow-up with your PCP or return to the ER as needed. Clinical Impressions Clinical Impression: Bronchitis, Acute lower respiratory tract infection Print Language Print Language: Danish Discharge ED Provider: Corrina Ford General Adult HPI General Chief complaint: Upper Respiratory Infection Stated complaint: cough, chest breanne, sore throat weak Time Seen by Provider: 12/12/24 17:02 Mode of Arrival: Ambulatory Source of Information: Patient Description of Symptoms (Recalled from ER Triage Doc. by RN): Pt presenst with c/o chills, nonproductive cough, chills, bodyaches History of Present Illness HPI narrative: Patient presents for evaluation of nonproductive cough that is very painful, nasal congestion body aches and subjective fever. He has had symptoms for approximately a week but is taking no home or nany-cad-hdgfldd treatments. He denies shortness of breath hemoptysis hematochezia melena nausea vomiting diarrhea. Related Data Previous Rx's ?Medication ?Instructions ?Recorded ondansetron HCl 4 mg tablet 4 mg PO Q6H PRN nausea and 05/04/23 vomiting #10 tabs mupirocin 2 % topical ointment 1 applic topical BID #15 grams 12/19/23 sulfamethoxazole 800 1 tab PO Q12H #20 tabs 12/19/23 mg-trimethoprim 160 mg tablet (Bactrim DS) [id number]-GN 5 ml PO Q4H PRN sinus symptoms 12/12/24 2 mg-30 mg-10 mg/5 mL oral syrup #118 mL (Bromfed DM) doxycycline hyclate 100 mg capsule 100 mg PO BID 10 days #20 caps 12/12/24 prednisone 50 mg tablet 50 mg PO DAILY 5 days #5 tabs 12/12/24 Allergies Allergy/AdvReac Type Severity Reaction Status Date / Time codeine Allergy Mild Verified 06/25/21 13:51 [facility] Disclaimer: The information contained in this section may have been updated after the patient was seen, as this information can be updated by other users. 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) Smoking Status: Unknown if ever smoked alcohol intake: never current occupational status: other Travel in the last 8 weeks: None Have you lived/traveled outside [place] in past 30 days?: No Contact w/someone who lives/traveled outside [place] past 30 days?: No Exposure to someone with infectious disease in past 14 days?: No Do you have a fever (greater than 100.4 F or 38 C)?: No Have you tested positive for COVID-19: No Exposed to someone with COVID-19 in past 14 days?: No Do you have a sore throat?: Yes Do you have a cough?: Yes Do you have any weakness?: Yes Do you have any diarrhea?: No Are you experiencing any unusual bleeding?: No Do you have any muscle aches/pain?: No Do you have any abdominal pain?: No Are you experiencing loss of taste or smell?: No Other Medical History Have you received the Flu Vaccine for this season: No Have you received the Pneumonia Vaccine: No ROS Obtained: Yes Systems reviewed as appropriate & no additional complaints except as documented Physical Exam General General appearance: alert and in no apparent distress Respiratory Respiratory exam: Present wheezes; Absent normal lung sounds bilaterally Cardiovascular Cardiovascular exam: Present regular rate Neurological Exam Neurological exam: Present alert, oriented X3 and CN II-XII intact Medical Decision Making Medical Records Medical records reviewed: Yes I reviewed the patient's medical records. Screening: Per USPSTF and CDC recommendations, given the prevalence of disease in our region, it is our hospital?s policy to screen for HIV and viral Hepatitis for all patients aged 18 and over and those with ongoing risk factors. Armando Inquiry Pt receiving controlled substance: No Vital Signs: 12/12/24 16:40 12/12/24 17:04 12/12/24 18:52 Temperature 98.2 F 98.0 F Temperature Source Oral Oral Pulse Rate 86 71 Pulse Rate [Right] 87 Respiratory Rate 18 18 Blood Pressure 117/77 123/79 Blood Pressure [Right Arm] 108/77 L Blood Pressure Mean [Right Arm] 87 Blood Pressure Source Automatic Cuff Blood Pressure Source [Right Arm] Automatic Cuff Blood Pressure Position Sitting Blood Pressure Position [Right Arm] Sitting 02 Sat by Pulse Oximetry 98 96 Oxygen Delivery Method Room Air Room Air Room Air Lab Data Lab results reviewed: Yes I reviewed the patient's lab results. Lab Results 12/12/24 16:43: Chlamy pneumoniae PCR Not detected, Adenovirus (PCR) Not detected, B. pertussis DNA (PCR) Not detected, Coronavirus OC43 (PCR) Not detected, Coronavirus HKU1 (PCR) Not detected, Coronavirus 229E (PCR) Not detected, SARS-CoV-2 (PCR) Not detected 12/12/24 16:43: SARS-CoV-2 (PCR) Not detected, Coronavirus NL63 (PCR) Not detected, Human Metapneumovir PCR Not detected, Influenza A (H1) PCR Not detected, Influ A (H1N1/09) PCR Not detected, Influenza A (H3) PCR Not detected, Influenza Type A (PCR) Not detected, Influenza A Untype (PCR) Not detected, Influenza Type B (PCR) Not detected 12/12/24 16:43: Influenza Type B (PCR) Not detected, M. pneumoniae (PCR) Not detected, Parainfluenza 1 (PCR) Not detected, Parainfluenza 2 (PCR) Not detected, Parainfluenza 3 (PCR) Not detected, Parainfluenza 4 (PCR) Not detected, RSV (PCR) Not detected, Entero/Rhino (PCR) Not detected, Group A Strep Rapid Negative Orders (Tests/Meds): ED MEDICATIONS Discontinued Medications Generic Name Dose Route Start Last Admin Trade Name Ines PRN Reason Stop Dose Admin Acetaminophen 1,000 mg 12/12/24 17:34 12/12/24 18:23 Acetaminophen 500mg Tab PO 12/12/24 17:35 1,000 mg ONCE ONE Administration Albuterol/Ipratropium 3 ml 12/12/24 17:34 12/12/24 18:23 Ipratropium/Albuterol 3 Ml Neb IH 12/12/24 17:35 3 ml ONCE ONE Administration Prednisone 60 mg 12/12/24 17:34 12/12/24 18:23 Prednisone 20mg Tab PO 12/12/24 17:35 60 mg ONCE ONE Administration ORDERS Category Date Time Status Full Resp Panel w/COVID ([facility]) Routine Lab 12/12/24 16:43 Completed Rapid PCR Covid and Flu A/B Stat Lab 12/12/24 16:43 Completed Strep Scrn Group A (Rapid) Stat Lab 12/12/24 16:43 Completed Strep Screen Confirmation Stat Micro 12/12/24 16:43 Received Medical Decision Narrative: In summary patient is a 59-year-old male who presents to the emergency department for evaluation of respiratory tract infection symptoms. Patient is hemodynamically stable upon arrival, afebrile. Physical exam is remarkable for an erythematous posterior pharynx without evidence of exudate, no cervical lymphadenopathy, breath sounds reveal an expiratory wheezes in all 4 meyer but no increased work of breathing or accessory muscle use, no reproducible chest pain on palpation, patient actually has a very coarse bronchial cough.. Differential diagnosis includes upper or lower respiratory tract infection versus bronchitis versus COPD etc. Initial workup will be conducted with full respiratory panel. Initial interventions include DuoNeb Decadron and Toradol Tylenol. Initial workup reviewed by me shows that his full respiratory panel is negative. Upon repeat evaluation patient had complete resolution of his wheezing and reported significantly better after initial intervention. Given this patient is appropriate for discharge with prescription for Bromfed prednisone albuterol and doxycycline for atypical coverage. Patient to follow- up closely with PCP for continued new or worsening signs or symptoms as needed Critical Care Critical Care Time Critical Care Time: No
[2024-12-12 17:04] VITALS: BP 117/77; PULSE 86; O2SAT 96
[2024-12-12 17:30] LABS: Strep Scrn Group A (Rapid) Negative (Negative)
--- NOTE | 2024-12-12 17:33 | PC.NURSE ---
UPDATED PT THAT STREP SWAB IS NEGATIVE STILL WAITING FOR COVID/FLU SWAB
--- NOTE | 2024-12-12 18:21 | PC.NURSE ---
don updated on POC.
[2024-12-12 18:22] LABS: Adenovirus,PCR Not Detected (NotDetected); Bordetella Pertussis Not Detected (NotDetected); Chlamydophila Pneumoniae, PCR Not Detected (NotDetected); Coronavirus 19, PCR Not Detected (NotDetected); Coronavirus 229E Not Detected (NotDetected); Coronavirus NL63 Not Detected (NotDetected); Coronavirus OC43 Not Detected (NotDetected); Coronovirus HKU1,PCR Not Detected (NotDetected); Human Metapneumovirus Not Detected (NotDetected); Influenza A, PCR Not Detected (NotDetected); Influenza AH1, 2009 Not Detected (NotDetected); Influenza AH1, PCR Not Detected (NotDetected); Influenza AH3,PCR Not Detected (NotDetected); Influenza B, PCR Not Detected (NotDetected); Mycoplasma Pneumoniae, PCR Not Detected (NotDetected); Parainfluenza 1, PCR Not Detected (NotDetected); Parainfluenza 2, PCR Not Detected (NotDetected); Parainfluenza 3, PCR Not Detected (NotDetected); Parainfluenza 4, PCR Not Detected (NotDetected); Respiratory Syncytial Virus Not Detected (NotDetected); Rhinovirus/Enterovirus Not Detected (NotDetected)
[2024-12-12] MEDS: ACETAMINOPHEN 500MG TAB 1000 MG PO (18:23)
[2024-12-12] MEDS: predniSONE 20MG TAB 60 MG PO (18:23)
[2024-12-12] MEDS: IPRATROPIUM/ALBUTEROL 3 ML NEB IH (18:23)
[2024-12-12 18:52] VITALS: BP 123/79; PULSE 71; RESP 18; TEMP 36.7; O2SAT 94
== END 2024-12-12 18:52 | disposition home or self-care (01) ==
PROVIDERS: Physician Assistant; Emergency Provider Emergency Medicine
DX: J22 Unspecified acute lower respiratory infection (principal); J40 Bronchitis, not specified as acute or chronic; R50.9 Fever, unspecified; R05.9 Cough, unspecified; R09.81 Nasal congestion; M79.10 Myalgia, unspecified site
CPT/HCPCS: 87430; 87633; 87636; 99283; J7620

== ENCOUNTER 2025-02-11 12:01 | Emergency (ER) | payer MEDICAID, SELFPAY ==
[2025-02-11 12:06] VITALS: BP 119/86; PULSE 82; O2SAT 95
[2025-02-11 12:10] VITALS: BP 119/86; PULSE 92; RESP 16; TEMP 36.6; O2SAT 98; BMI 21.4
--- NOTE | 2025-02-11 12:12 | ED_ITS ---
<Statement entered by Leticia Mc MD - 02/11/25 14:16> I was consulted by the BRISEYDA, and we discussed the complexity of problems being addressed. I approved the treatment and management plan for this patient's care in the emergency department, thus performing a substantive portion of the medical decision making. Leticia Mc MD Discharge Plan Disposition Patient Disposition: Home, Self-Care Condition: Good Prescriptions Prescriptions: No Action ondansetron HCl 4 mg tablet 4 mg PO Q6H PRN (Reason: nausea and vomiting) Qty: 10 0RF sulfamethoxazole-trimethoprim [Bactrim DS] 800-160 mg tablet 1 tab PO Q12H Qty: 20 0RF mupirocin 2 % ointment 1 applic topical BID Qty: 15 0RF Rx Instructions: apply to abscess bid doxycycline hyclate 100 mg capsule 100 mg PO BID 10 Days Qty: 20 0RF prednisone 50 mg tablet 50 mg PO DAILY 5 Days Qty: 5 0RF acsisgwrpjetezj-fmpbuucrh-OZ [Bromfed DM] 2-30-10 mg/5 mL syrup 5 ml PO Q4H PRN (Reason: sinus symptoms) Qty: 118 0RF Referrals Follow up/Referrals: Provider,Referral, [Primary Care Provider] - See instructions Activity Restrictions/Add. Instructions Additional Instructions/Restrictions: Keep sutures dry and covered. May return to ED or PCP to have sutures removed in 1 week. If any problems or concerns please return to the ED. Clinical Impressions Clinical Impression: Laceration Instructions Patient Instructions: DI for Laceration Repair Print Language Print Language: Malay Discharge ED Provider: Leticia Mc General Adult HPI General Chief complaint: Wound/Laceration Stated complaint: R hand cut Time Seen by Provider: 02/11/25 12:10 History of Present Illness HPI narrative: 15-year-old male presents to the ED today after picking up a washer and cutting his fingers on the metal. He says it did not hurt. He has cuts on the 3rd and 4th finger. He can flex and extend. He has bleeding controlled. He does need a tetanus today. Related Data Previous Rx's ?Medication ?Instructions ?Recorded ondansetron HCl 4 mg tablet 4 mg PO Q6H PRN nausea and 05/04/23 vomiting #10 tabs mupirocin 2 % topical ointment 1 applic topical BID #15 grams 12/19/23 sulfamethoxazole 800 1 tab PO Q12H #20 tabs 12/19/23 mg-trimethoprim 160 mg tablet (Bactrim DS) tvxfoygahnzoeps-crjsohtutoxqihp-YE 5 ml PO Q4H PRN sinus symptoms 12/12/24 2 mg-30 mg-10 mg/5 mL oral syrup #118 mL (Bromfed DM) doxycycline hyclate 100 mg capsule 100 mg PO BID 10 days #20 caps 12/12/24 prednisone 50 mg tablet 50 mg PO DAILY 5 days #5 tabs 12/12/24 Allergies Allergy/AdvReac Type Severity Reaction Status Date / Time codeine Allergy Mild Nausea Verified 02/11/25 12:20 Penicillins Allergy Hives Verified 02/11/25 12:20 PFSH PFS Disclaimer: The information contained in this section may have been updated after the patient was seen, as this information can be updated by other users. 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 , [employer]) Smoking Status: Current every day smoker tobacco type: cigarettes packs per d ay: 1 alcohol intake: never current occupational status: other Travel in the last 8 weeks?: None Have you lived/traveled outside US in past 30 days?: No Contact w/someone who lives/traveled outside US past 30 days?: No Exposure to someone with infectious disease in past 14 days?: No Do you have a fever (greater than 100.4 F or 38 C)?: No Have you tested positive for COVID-19?: No Exposed to someone with COVID-19 in past 14 days?: No Do you have a sore throat?: No Do you have a cough?: No Do you have any weakness?: No Do you have any diarrhea?: No Are you experiencing any unusual bleeding?: No Do you have any muscle aches/pain?: No Do you have any abdominal pain?: No Are you experiencing loss of taste or smell?: No Other Medical History Have you received the Flu Vaccine for this season: No Have you received the Pneumonia Vaccine: No ROS Obtained: Yes Systems reviewed as appropriate & no additional complaints except as documented Constitutional Constitutional: Reports as per HPI Physical Exam General General appearance: alert and in no apparent distress Head Head exam: atraumatic and normocephalic Eye Eye exam: Present normal appearance, PERRL and EOMI ENT ENT exam: Present mucous membranes moist Neck Neck exam: Present full ROM and trachea midline Respiratory Respiratory exam: Present normal lung sounds bilaterally Cardiovascular Cardiovascular exam: Present regular rate, normal rhythm, +S1 and +S2 Extremities Exam Extremities exam: Present full ROM, normal capillary refill and other (Right hand with laceration on 3rd and 4th finger) Neurological Exam Neurological exam: Present alert, oriented X3 and normal gait Skin Skin exam: Present warm, dry and other (Laceration to 3rd and 4th finger on ri ght hand) Medical Decision Making Medical Records Medical records reviewed: Yes I reviewed the patient's medical records. Screening: Per USPSTF and CDC recommendations, given the prevalence of disease in our region, it is our hospital?s policy to screen for HIV and viral Hepatitis for al l patients aged 18 and over and those with ongoing risk factors. Armando Inquiry Pt receiving controlled substance: No Armando was queried for this patient: No Vital Signs: 02/11/25 12:06 02/11/25 12:10 02/11/25 12:30 Temperature 98 F Temperature Source Oral Pulse Rate 82 80 Pulse Rate [Left] 92 H Respiratory Rate 16 Blood Pressure 119/86 101/73 L Blood Pressure [Right Arm] 119/86 Blood Pressure Mean [Right Arm] 97 Blood Pressure Source [Right Arm] Automatic Cuff Blood Pressure Position [Right Arm] Sitting 02 Sat by Pulse Oximetry 95 98 100 Oxygen Delivery Method Room Air Room Air Room Air Orders (Tests/Meds): ED MEDICATIONS Discontinued Medications Generic Name Dose Route Start Last Admin Trade Name Freq PRN Reason Stop Dose Admin Lidocaine/Epinephrine 20 ml 02/11/25 12:51 02/11/25 12:53 Lidocaine 1% W/Epi 1:100,000 20ml Vial SQ 02/11/25 12:52 20 ml ONCE ONE Administration Tetanus/Reduced Diphtheria/Acell Pertussis 0.5 ml 02/11/25 12:33 02/11/25 12:34 Tet/Diphth/Pert-Adult 0.5ml Syringe IM 02/11/25 12:34 0.5 ml .ONCE ONE Administration Medical Decision Narrative: Insert review patient is a 59-year-old male presenting to the emergency department for evaluation of laceration to his right 2nd and 3rd finger after lifting a washer. Patient is hemodynamically stable and nontoxic-appearing upon arrival, afebrile. Differential diagnosis includes laceration. Workup include laceration repair. Initial inventions include wound care and laceration repair. Patient is stable throughout ER visit. Wound repaired and discharge instructions given. Patient safe for discharge home. Critical Care Critical Care Time Critical Care Time: No
[2025-02-11 12:30] VITALS: BP 101/73; PULSE 80; O2SAT 100
[2025-02-11] MEDS: TET/DIPHTH/PERT-ADULT 0.5ML SYRINGE 0.5 ML IM (12:34)
[2025-02-11] MEDS: LIDOCAINE 1% W/EPI 1:100,000 20ML VIAL 20 ML SQ (12:53)
[2025-02-11 13:07] VITALS: BP 101/73; PULSE 80; RESP 16; TEMP 36.7; O2SAT 98
== END 2025-02-11 13:08 | disposition home or self-care (01) ==
PROVIDERS: Emergency Provider Student in an Organized Health Care Education/Training Program
DX: S61.411A Laceration without foreign body of right hand, initial encounter (principal); W26.8XXA Contact with other sharp object(s), not elsewhere classified, initial encounter; Z23 Encounter for immunization
CPT/HCPCS: 90471; 90715; 99283; J2004

== ENCOUNTER 2025-03-21 21:58 | Emergency (ER) | payer MEDICAID, SELFPAY ==
--- OUTSIDE RECORDS SUMMARY | 2025-03-21 22:10 | XMS_ITS | Clinical Summary ---
Author Organization [facility] [place] Address [address] [place] [address] Phone Care Team Providers Care Binder Lockstitch Name Role Phone Farshad Becerra MD Primary Care Provider Amita Albert PEANUT SEPARATOR Unavailable [phone] Allergies Active Allergy Reactions Criticality Noted Date Comments Codeine 06/11/2010 Penicillins 06/11/2010 Medications aspirin 81 mg Oral Tablet, Delayed Release (E.C.)Indications: Claudication Take 1 Tablet by mouth daily. 1 Active etodolac (LODINE) 400 mg Oral TabletIndications: Pain of left lower extremity,Acute left ankle pain,Left foot pain,Scoliosis of thoracolumbar spine, unspecified scoliosis type,Primary osteoarthritis of left knee Take 1 Tablet by mouth 2 times daily with meals as needed. 60 Tablet 1 4 Active baclofen (LIORESAL) 10 mg Oral TabletIndications: Scoliosis of thoracolumbar spine, unspecified scoliosis type TAKE ONE TABLET BY MOUTH 3 TIMES A DAY NEEDED FOR MUSCLE PAIN *MAY CAUSE DROWSINESS* 45 Tablet 2 4 Active albuterol (VENTOLIN HFA) 90 mcg/actuation Inhl HFA Aerosol InhalerIndications :COPD, mild (HCC) Inhale 1-2 Puffs into the lungs every 4 hours as needed for Wheezing or Shortness of Breath. 18 g 5 4 Active buPROPion (WELLBUTRIN XL) 300 mg Oral Tablet Sustained Release 24 hrIndications:Stre ss Take 1 Tablet by mouth every morning. 90 Tablet 1 4 Active pantoprazole (PROTONIX) 40 mg Oral Tablet, Delayed Release (E.C.)Indications: Gastroesophageal reflux disease without esophagitis Take 1 Tablet by mouth daily. 90 Tablet 1 4 Active rosuvastatin (CRESTOR) 10 mg Oral TabletIndications: Dyslipidemia Take 1 Tablet by mouth nightly. 90 Tablet 1 4 Active triamcinolone (KENALOG) 0.1 % Top CreamIndications:I ntrinsic eczema Apply topically 2 times daily. 80 g 2 4 Active ergocalciferol (VITAMIN D) 1,250 mcg (50,000 unit) Oral CapsuleIndications :Vitamin D deficiency TAKE 1 CAPSULE BY MOUTH ONCE WEEKLY DIRECTED 12 Capsule 1 5 Active traZODone (DESYREL) 50 mg Oral TabletIndications: Chronic insomnia Take 1 Tablet by mouth nightly. 90 Tablet 1 5 Active Active Problems Patient Care Coordination No te Formatting of this note migh t be different from the original. HCC audit completed by Elissa Cameron RN on 07/27/2023. Problem Noted Date Diagnosed Date Intrinsic eczema 09/20/2024 Assessment & Plan (12/02/2024 2:28 PM EST): Recheck if not resolving Orders: predniSONE (DELTASONE) 10 mg Oral Tablet; Prednisone taper, 50mg daily x 2 day, 40mg daily x 2 day, 30mg daily x 2 day, 20mg daily x 2 day, 10mg daily x 2 day, 5mgy daily x 2 day Assessment & Plan (09/20/2024 11:05 AM EST): Try TCN prn Orders: triamcinolone (KENALOG) 0.1 % Top Cream; Apply topically 2 times daily. Chronic insomnia 09/20/2024 Assessment & Plan (12/02/2024 2:28 PM EST): Trazodone working well Ok to refill Orders: traZODone (DESYREL) 50 mg Oral Tablet; Take 1 Tablet by mouth nightly. Assessment & Plan (09/20/2024 11:05 AM EST): Add trazodone at hs as needed Orders: traZODone (DESYREL) 50 mg Oral Tablet; Take 1 Tablet by mouth nightly. GERD (gastroesophageal reflux disease) Assessment & Plan (09/20/2024 11:05 AM EST): Stable on PPI Orders: pantoprazole (PROTONIX) 40 mg Oral Tablet, Delayed Release (E.C.); Take 1 Tablet by mouth daily. Assessment & Plan (03/07/2024 10:38 AM EDT): Doing well on medication, but out for a few months Assessment & Plan (11/07/2022 1:46 PM EST): Well controled on protonix. 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/10/2021 Overview (01/19/2024): Sp fem pop bypass 09/2021 Vascular surgery -- [facility] Assessment & Plan (04/24/2022 7:08 AM EDT): Sp fem pop bypass 09/2021 Vascular surgery -- [place] Lower extremity arterial insufficiency, severe, left 08/01/2021 Overview (04/24/2022): Sp fem-pop bypass 09/2021 Vascular surgery -- Dr Bunn -- [facility] Assessment & Plan (08/01/2021 1:47 PM EDT): Being addressed by vascular currently COPD, mild 11/07/2020 Assessment & Plan (09/20/2024 11:05 AM EST): Stable no flares Orders: albuterol (VENTOLIN HFA) 90 mcg/actuation Inhl HFA Aerosol Inhaler; Inhale 1-2 Puffs into the lungs every 4 hours as needed for Wheezing or Shortness of Breath. Assessment & Plan (03/07/2024 10:37 AM EDT): Doing well and needing albuterol only rarely, less than BIW Assessment & Plan (11/07/2022 1:48 PM EST): Doing well on albuterol. Assessment & Plan (04/24/2022 7:04 AM EDT): Stable on albuterol prn Scoliosis of thoracolumbar spine 11/07/2020 Assessment & Plan (03/07/2024 10:39 AM EDT): Wel controlled on medication, but out for a few months. Assessment & Plan (11/07/2022 1:47 PM EST): Well controlled. Assessment & Plan (04/24/2022 7:03 AM EDT): etodoloc prn Assessment & Plan (11/07/2020 5:39 PM EST): Stop mobic Try etodolac Primary osteoarthritis of left knee 11/07/2020 Assessment & Plan (11/07/2022 1:47 PM EST): Well controlled Assessment & Plan (04/24/2022 7:04 AM EDT): Etodolac prn Assessment & Plan (11/07/2020 5:40 PM EST): Stop mobic Try etodolac Stress 11/07/2020 Assessment & Plan (09/20/2024 11:05 AM EST): Remains on wellbutrin Overall well Orders: buPROPion (WELLBUTRIN XL) 300 mg Oral Tablet Sustained Release 24 hr; Take 1 Tablet by mouth every morning. Assessment & Plan (11/07/2022 1:48 PM EST): Well controlled. Vitamin D deficiency 10/21/2018 Assessment & Plan (12/02/2024 2:28 PM EST): Stable on replacement Orders: ergocalciferol (VITAMIN D) 1,250 mcg (50,000 unit) Oral Capsule; TAKE 1 CAPSULE BY MOUTH ONCE WEEKLY DIRECTED Assessment & Plan (09/20/2024 11:05 AM EST): Stable on replacement Orders: ergocalciferol (VITAMIN D) 1,250 mcg (50,000 unit) Oral Capsule; TAKE 1 CAPSULE BY MOUTH ONCE WEEKLY DIRECTED Assessment & Plan (03/07/2024 10:39 AM EDT): Does well on supplement, but out. Assessment & Plan (04/24/2022 7:03 AM EDT): Stable on replacement Simple chronic bronchitis 11/04/2017 Assessment & Plan (04/24/2022 7:03 AM EDT): Encouraged to quit smoking Albuterol prn Assessment & Plan (03/01/2019 10:39 AM EDT): Stable, no complaints. 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 Assessment & Plan (03/07/2024 10:38 AM EDT): Currently out of meds for a few months Having no problems on Crestor when taken. Assessment & Plan (04/24/2022 7:04 AM EDT): Start statin in light of recent vascular surgery Resolved Problems Problem Noted Date Diagnosed Date Resolved Date COVID-19 virus infection 09/09/2023 Left shoulder strain 09/09/2023 025 Sprain of ankle 09/09/2023 12/02/2024 Strain of left calf muscle 09/09/2023 0 12/02/2024 Claudication in peripheral vascular disease 04/24/2022 04/24/2022 Lesion of male perineum 11/07/202011/06 Epigastric abdominal pain 11/07/2020 Chronic pain of left knee 11/07/2020 Cavitary lesion of lung 10/01/201704/05 Assessment & Plan (04/24/2022 7:01 AM EDT): Needs to fu with thoracic surgery Assessment & Plan (08/01/2021 1:46 PM EDT): To see pulmonary Recent CT done Insomnia, persistent 08/07/2016 025 Assessment & Plan (11/07/2022 1:47 PM EST): Doing well on hydroxyzine. Assessment & Plan (04/24/2022 7:04 AM EDT): Trazodone prn Nicotine addiction 06/11/2010 2 Back pain 06/11/2010 04/24/2022 Assessment & Plan (03/01/2019 10:40 AM EDT): Taking meds as directed. Alcohol abuse 06/11/2010 08/07/2016 Immunizations Immunization Administration Dates Next Due Hepatitis B (Recombinant), Adjuvanted 03/07/2024 Influenza Intradermal 09/03/2012 09/03/2013 Influenza Seasonal Injectable PF 12/02/2024 Influenza Vaccine Quadrivalent 10/01/2017 Influenza Vaccine Quadrivalent PF 12/01/2023, Influenza Virus Vaccine Quadrivalant, Flublok Moderna SARS-CoV-2 Booster V accine 18+ Yrs (Light Blue Border) 04/24/2022 Pfizer SARS-CoV-2 Vaccine Silas-sucrose 12+ Yrs 0 03/07/2024 Pneumococcal Conjugate Vaccine 20 Valent 022 Pneumococcal Polysaccharide 23 Valent 11/04/2016 Tdap 07/07/2017,04/17/2013 Surgical History Surgery Date Site/Laterality Comments HAND SURGERY 07/07/2017 Left LEFT HAND AND WRIST EXPLORATION with neruolysis of radial and digital nerve of thumb, incision and drainage, complex wound closure ; Surgeon: Brandyn Kothari MD; Location: [facility]; Service: Hand BRONCHIAL ULTRASOUND 10/09/2017 N/A Surgeon: Gale Grove MD; Location: [facility] ENDOSCOPY; Service: Endoscopy CT NEEDLE BIOPSY LUNG 02/18/2018 CT NEEDLE BIOPSY LUNG 02/18/[address] Medical History Medical History Date Comments Alcohol abuse Tobacco abuse Dyslipidemia Back pain, chronic Simple chronic bronchitis (HCC) 11/04/2017 COPD, mild (HCC) 11/07/2020 Primary osteoarthritis of left knee 11/07/2020 Lower extremity arterial insufficiency, severe, left 08/01/2021 Claudication in peripheral vascular disease 04/05 GERD (gastroesophageal reflux disease) Dyslipidemia 09/03/2012 Family History * Patient is adopted Medical History Relation Name Comments Other Other Colon Cancer Neg Hx Prostate Cancer Neg Hx Relation Name Status Comments Other 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 Tobacco Use Types Packs/Day Years Used Date Smoking Tobacco: Every Day Cigarettes 0.3 51.5 Started: 10/05/1973 Passive Smoke Exposure: Past Smokeless Tobacco: Never Tobacco Cessation:Ready to Q uit: Not Asked; Counseling Given: Not Answered Alcohol Use Standard Drinks/Week Comments No 0 (1 standard drink = 0.6 oz pur e alcohol) [facility] Utilities Answer Date Recorded In the past 12 months has [employer], gas, oil, or water [employer] threatened to shut off services in your home? No 11/27/2023 Overall Financial Resource Strain (CARDIA) Answe r Date Recorded How hard is it for you to pa y for the very basics like food, housing, medical care, and heating? Not hard at all 11/27/2023 PHQ-2 Answer Date Recorded PHQ-2 Total Score 0 12/02/2024 [facility] - Occupational Stress Questionnaire Answer Date Recorded Do you feel stress - tense, restless, nervous, or anxious, or unable to sleep at night because your mind is troubled all the time - these days? Not at all 11/27/2023 Exercise Vital Sign Answer Date Recorde d On average, how many days pe r week do you engage in moderate to strenuous exercise (like a brisk walk)? 4 days 11/27/2023 On average, how many minutes do you engage in exercise at this level? 20 min 11/27/2023 Hunger Vital Sign Answer Date Recorded Within the past 12 months, y ou worried that your food would run out before you got the money to buy more. Never true 11/27/19 24 Within the past 12 months, t he food you bought just didn't last and you didn't have money to get more. Never true 11/27/2023 PRAPARE - Transportation Answer Date Re corded In the past 12 months, has l ack of transportation kept you from medical appointments or from getting medications? No 11/06 In the past 12 months, has l ack of transportation kept you from meetings, work, or from getting things needed for daily living? No 11/27/2023 Sexually Active Control Partners Comments Not Currently Female Sex and Gender Information Value Date Recorded Sex Assigned at Not on file Legal Sex Male 7:12 PM EDT Gender Identity Not on file Sexual Orientation Not on file Obstetrics History Last Filed Vital Signs Vital Sign Reading Time Taken Comments Blood Pressure 112/62 12/02/2024 2:17 PM EST Pulse 91 12/02/2024 2:17 PM EST Temperature 36.7 C (98.1 F) 12/02/2024 2:17 PM EST Respiratory Rate 16 11/26/2023 11:32 AM EST Oxygen Saturation 95% 12/02/2024 2:17 PM EST Inhaled Oxygen Concentration - - Weight 67.2 kg (148 lb 3.2 oz) 12/02/2024 2:17 P M EST Height 175.3 cm (5' 9 ) 12/02/2024 2:17 PM EST Body Mass Index 21.89 12/02/2024 2:17 PM EST Plan of Treatment Health Maintenance Due Date Last Done Comments Colonoscopy 2009 FIT 2009 Sigmoidoscopy 2009 Virtual Colonography 2009 Zoster (1 of 2) 2014 Cologuard 05/31/2022 05/31/2019 Colon Cancer Screening 05/31/2022 RSV or 60+ (1 - Risk 60-74 years 1-dose series) 2024 Hepatitis B Vaccine (2 of 2 - CpG 2-dose series) 04/04/2024 03/07/2024 COVID-19 Vaccine ( - season) 2024 03/07/2024, 04/24/2022, 10/23/2021, Additional history exists Annual Wellness Exam 03/07/2025 03/07/2024, 11/07/2022, 08/01/2021, Additional history exists DTaP/TDaP/Td (3 - Td or Tdap) 07/07/2027 07/07/2017, 04/17/2013 Hepatitis C Screening Completed 11/04/2016 Pneumococcal Vaccine 50+ Completed 04/24/2022, 10/07 Influenza Vaccine Completed 12/02/2024, , 08/01/2021, Additional history exists Meningococcal B Vaccine Aged Out No l onger eligible based on patient's age to complete this topic Goals Goal Patient Goal Type Associated Problems Recent Progress Patient-Stated? Author Eat better, exercise, reach an ideal body weight General No Madeleine Lyle RMA Stay Tobacco Free Lifestyle No Madeleine Lyle RMA Procedures Procedure Name Priority Date/Time Associated Diagnosis Comments HCV ANTIBODY SCREEN W/ REFLEX Routine 11/04/2016 8:34 AM EST Need for hepatitis C screening test from Last 3 Months or Most Recently Relevant to Health Maintenance Results * HEPATITIS C ANTIBODY - SCREENING (11/04/2016 8:34 AM EST) Hep C Ab Negative Negative [facility] Blood specimen (specimen) 11/04/2016 8:34 AM EST 11/04/2016 4:56 PM EST us Farshad Becerra MD HEMATOLOGY [place] [address] from Last 3 Months or Most Recently Relevant to Health Maintenance Insurance [id number] [place] [employer] [place] [id number] MDR [employer] [facility] ([id number] MDR [employer] AA LETICIA JOSEPH [id number] * Guarantor: TRAE SALCEDO Account Type Relation to Patient Date of Phone Billing Address [place] Personal Family 1965 [address] [facility] [address], [place] [address] [facility] [address] [facility] AUTO INSURANCE AA LETICIA JOSEPH [id number] Care Teams Binder Lockstitch Relationship Specialty Start Date End Date Farshad Becerra MD [address] [place] [address] PCP - General Family Medicine 07/03/15 Amita Albert APRN [address] [place] [address] Nurse Practitioner 02/20/17
[2025-03-21 22:17] VITALS: BP 127/86; PULSE 91; RESP 16; TEMP 37.3; O2SAT 96; BMI 25.7
--- NOTE | 2025-03-21 22:38 | XR_ITS ---
PROCEDURE INFORMATION: Exam: XR Right Shoulder Exam date and time: 03/21/2025 10:37 PM Age: 59 years old Clinical indication: Pain; Shoulder; Right; Additional info: Atraumatic pain bilateral TECHNIQUE: Imaging protocol: Radiologic exam of the right shoulder. Views: 2 or more views. COMPARISON: CR XR CHEST W APICAL LORDOTIC 10/06/2020 10:58 AM FINDINGS: Bones/joints: Moderate osteophytosis and degenerative changes involve the right AC joint. No evidence of acute osseous abnormality. Soft tissues: Normal. IMPRESSION: 1. Moderate osteophytosis and degenerative changes involve the right AC joint. 2. No evidence of acute osseous abnormality.
--- NOTE | 2025-03-21 22:38 | XR_ITS ---
PROCEDURE INFORMATION: Exam: XR Left Shoulder Exam date and time: 03/21/2025 10:39 PM Age: 59 years old Clinical indication: Pain; Shoulder; Left; Additional info: Atraumatic pain bilateral TECHNIQUE: Imaging protocol: Radiologic exam of the left shoulder. Views: 2 or more views. COMPARISON: CR XR SHOULDER LT MIN 2V 05/04/2023 7:18 AM FINDINGS: Bones/joints: Normal. Soft tissues: Normal. IMPRESSION: No acute findings.
[2025-03-21] MEDS: KETOROLAC 30MG/ML VIAL 30 MG IM (22:48)
[2025-03-21] MEDS: DEXAMETHASONE 4MG TABLET 10 MG PO (22:49)
--- NOTE | 2025-03-21 22:54 | PC.NURSE ---
Pt back from xray
--- NOTE | 2025-03-21 22:58 | HMH.EDGENADL ---
Discharge Plan Disposition Patient Disposition: Home, Self-Care Prescriptions Prescriptions: New dexamethasone 6 mg tablet 6 mg PO DAILY Qty: 5 0RF No Action ondansetron HCl 4 mg tablet 4 mg PO Q6H PRN (Reason: nausea and vomiting) Qty: 10 0RF sulfamethoxazole-trimethoprim [Bactrim DS] 800-160 mg tablet 1 tab PO Q12H Qty: 20 0RF mupirocin 2 % ointment 1 applic topical BID Qty: 15 0RF Rx Instructions: apply to abscess bid doxycycline hyclate 100 mg capsule 100 mg PO BID 10 Days Qty: 20 0RF prednisone 50 mg tablet 50 mg PO DAILY 5 Days Qty: 5 0RF [id number]-omnmpbzve-XO [Bromfed DM] 2-30-10 mg/5 mL syrup 5 ml PO Q4H PRN (Reason: sinus symptoms) Qty: 118 0RF Referrals Follow up/Referrals: Provider,Jesus, [Primary Care Provider, Medical] - See instructions Killian Terry MD [Staff Physician, Family Practice] - See instructions Singh Askew DO [Staff Physician, Orthopedics] - See instructions Activity Restrictions/Add. Instructions Additional Instructions/Restrictions: Call your family doctor to establish care for this visit to the emergency department and schedule follow-up within 48 hours to ensure improvement. If you have any worsening of your condition or any other concerning signs or symptoms, return to the emergency department or your primary care doctor for further evaluation. Steroid each morning for the next 5 days. Follow-up with family doctor. If you continue having pain, follow-up with Dr. Askew, orthopedist. Information here. Clinical Impressions Clinical Impression: Bilateral shoulder pain Print Language Print Language: Cymro Discharge ED Provider: Eliud Evans General Adult HPI General Chief complaint: PAIN Stated complaint: all joints hurting,sore throat Time Seen by Provider: 03/21/25 22:05 Mode of Arrival: Ambulatory Source of Information: Patient Description of Symptoms (Recalled from ER Triage Doc. by RN): Pt states he has had shoulder pain and generalized joint pain History of Present Illness HPI narrative: Please note that above description of symptoms, in this electronic medical record under categorization of recalled from ER triage doctor by RN are reflective of an initial nursing assessment, however, is not reflective of my full history and physical exam that was personally taken and clarified. Consequentially, this preceding description of symptoms, which may include the patient's categorized chief complaint in the EMR, do not reflect my personal clinical impression, and the ultimate description of history of present illness and patient stated complaints should be deferred to this section of the note. Unless stated otherwise or congruent with this section of the note, additional signs, symptoms, or incongruence should be interpreted as inaccurate with my clinical impression. Related Data Previous Rx's ?Medication ?Instructions ?Recorded ondansetron HCl 4 mg tablet 4 mg PO Q6H PRN nausea and 05/04/23 vomiting #10 tabs mupirocin 2 % topical ointment 1 applic topical BID #15 grams 12/19/23 sulfamethoxazole 800 1 tab PO Q12H #20 tabs 12/19/23 mg-trimethoprim 160 mg tablet (Bactrim DS) qfoommbjdljwock-jijohackbhlrdkp-ZA 5 ml PO Q4H PRN sinus symptoms 12/12/24 2 mg-30 mg-10 mg/5 mL oral syrup #118 mL (Bromfed DM) doxycycline hyclate 100 mg capsule 100 mg PO BID 10 days #20 caps 12/12/24 prednisone 50 mg tablet 50 mg PO DAILY 5 days #5 tabs 12/12/24 dexamethasone 6 mg tablet 6 mg PO DAILY #5 tabs 03/21/25 Allergies Allergy/AdvReac Type Severity Reaction Status Date / Time codeine Allergy Mild Nausea Verified 02/11/25 12:20 Penicillins Allergy Hives Verified 02/11/25 12:20 PFSH PFSH Disclaimer: The information contained in this section may have been updated after the patient was seen, as this information can be updated by other users. 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: Current every day smoker tobacco type: cigarettes packs per day: 1 alcohol intake: never current occupational status: other Travel in the last 8 weeks?: None Have you lived/traveled outside [place] in past 30 days?: No Contact w/someone who lives/traveled outside US past 30 days?: No Exposure to someone with infectious disease in past 14 days?: No Do you have a fever (greater than 100.4 F or 38 C)?: No Have you tested positive for COVID-19?: No Exposed to someone with COVID-19 in past 14 days?: No Do you have a sore throat?: No Do you have a cough?: No Do you have any weakness?: No Do you have any diarrhea?: No Are you experiencing any unusual bleeding?: No Do you have any muscle aches/pain?: No Do you have any abdominal pain?: No Are you experiencing loss of taste or smell?: No Other Medical History Have you received the Flu Vaccine for this season: No Have you received the Pneumonia Vaccine: No ROS Obtained: Yes All systems reviewed & no additional complaints except as documented Physical Exam General General appearance: alert Head Head exam: atraumatic and normocephalic Eye Eye exam: Present normal appearance, PERRL and EOMI Neck Neck exam: Present normal inspection, full ROM and trachea midline Respiratory Respiratory exam: Absent respiratory distress, wheezes, stridor, accessory muscle use or prolonged expiratory phase Cardiovascular Cardiovascular exam: Present other (Pulses equal symmetric in upper and lower extremities) Abdominal Exam Abdominal exam: Present soft; Absent distention, tenderness or pulsatile mass Extremities Exam Extremities exam: Absent edema Neurological Exam Neurological exam: Present alert, oriented X3 and CN II-XII intact; Absent motor sensory deficit Skin Skin exam: Present warm and dry; Absent diaphoresis or erythema Medical Decision Making Medical Records Medical records reviewed: Yes I reviewed the patient's medical records. Screening: Per USPSTF and CDC recommendations, given the prevalence of disease in our region, it is our hospital?s policy to screen for HIV and viral Hepatitis for all patients aged 18 and over and those with ongoing risk factors. Armando Inquiry Pt receiving controlled substance: No Armando was queried for this patient: No Vital Signs: 03/21/25 22:17 Temperature 99.1 F Temperature Source Oral Pulse Rate [Right Brachial] 91 H Respiratory Rate 16 Blood Pressure [Right Arm] 127/86 Blood Pressure Mean [Right Arm] 99 Blood Pressure Source [Right Arm] Automatic Cuff Blood Pressure Position [Right Arm] Sitting 02 Sat by Pulse Oximetry 96 Oxygen Delivery Method Room Air Orders (Tests/Meds): ED MEDICATIONS Discontinued Medications Generic Name Dose Route Start Last Admin Trade Name Freq PRN Reason Stop Dose Admin Dexamethasone 10 mg 03/21/25 22:38 03/21/25 22:49 Dexamethasone 4mg Tablet PO 03/21/25 22:39 10 mg ONCE ONE Administration Ketorolac Tromethamine 30 mg 03/21/25 22:38 03/21/25 22:48 Ketorolac 30mg/Ml Vial IM 03/21/25 22:39 30 mg ONCE ONE Administration ORDERS Category Date Time Status Shoulder XR left minimum 2 views [XR shoulder LT min 2V Exams 03/21/25 22:38 Taken ] Stat Shoulder XR right miminum 2 views [XR shoulder RT min Exams 03/21/25 22:38 Taken 2V] Stat HIV Combo Routine Lab 03/21/25 22:19 Ordered Hepatitis C Ab Qual. W/ RFX Routine Lab 03/21/25 22:19 Ordered Medical Decision Narrative: This a 59-year-old male presenting with multiple complaints. He states that he has bilateral shoulder pain, bilateral elbow pain, bilateral hand pain, bilateral knee pain, bilateral big toe pain, etc. When asked what patient's main complaint is and what he wants to focus on, he states his bilateral small inferior patient states that his shoulder started hurting today after he was working on a car yesterday feels this may be related. States that his biggest complaint is that when he tries to raise his left shoulder it is painful, so causes him to stop. He bought a sling at a nearby pharmacy, this seems to help. Has not taken anything for the pain. History obtained to patient. On arrival, very clinically well. Moving all extremities spontaneously, patient's shoulders no outward sign of abnormality, but he does have pain with range of motion when abducting left upper extremity. Passive range of motion intact. Neurovascularly intact. Differential includes impingement syndrome, radiculopathy, radiculitis, less likely be fracture, dislocation, among others. Patient was given Toradol IM and dexamethasone p.o. X-rays were obtained. On independent interpretation, no acute bony abnormality of either shoulder. No obvious arthritic changes, but joint space is narrowed. I feel this is likely safety representative of a impingement syndrome. Because patient at baseline without signs or symptoms of clinical decompensation, deemed appropriate for discharge. Results were relayed to patient who voiced understanding and were agreeable to outpatient management and follow up. I discussed my clinical impression with patient and answered all questions. At this time, the evidence for any other entities in the differential is insufficient to warrant any further testing or ED observation. This was explained as well. Advisory was given that persistent or worsening symptoms require further evaluation. I confirmed the understanding of this discussion. Claim Approver disclaimer Much of this encounter note is an electronic office machine embossograph operator spoken language to printed text. Electronic office machine embossograph operator of the spoken language may permit errors. Although I have reviewed the note, some errors may still exist. Critical Care Critical Care Time Critical Care Time: No
[2025-03-21 23:07] VITALS: BP 127/86; PULSE 87; RESP 18; TEMP 37.3; O2SAT 97
== END 2025-03-21 23:09 | disposition home or self-care (01) ==
PROVIDERS: Emergency Provider Emergency Medicine
DX: M25.511 Pain in right shoulder (principal); M25.512 Pain in left shoulder; F17.210 Nicotine dependence, cigarettes, uncomplicated
CPT/HCPCS: 73030; 96372; 99283; J1885; J8540

== ENCOUNTER 2025-04-30 06:51 | Emergency (ER) | payer MEDICAID, SELFPAY ==
[2025-04-30 06:58] VITALS: BP 112/81; PULSE 87; RESP 16; TEMP 36.6; O2SAT 98; BMI 21.4
--- NOTE | 2025-04-30 07:03 | XR_ITS ---
PROCEDURE INFORMATION: Exam: XR Right Shoulder Exam date and time: 04/30/2025 7:02 AM Age: 60 years old Clinical indication: Shoulder; Right; Limited rom, pain; Additional info: Atraumatic pain TECHNIQUE: Imaging protocol: Radiologic exam of the right shoulder. Views: 2 or more views. COMPARISON: CR XR SHOULDER RT MIN 2V 03/21/2025 10:37 PM FINDINGS: Bones/joints: No acute osseous abnormality. No evidence of acute fracture or dislocation. Moderate right AC joint arthrosis with marginal hypertrophic bony spurring and subacromial narrowing. Mild degenerative enthesopathic changes of the proximal right humerus greater tuberosity. Soft tissues: No significant soft tissue abnormalities. IMPRESSION: Moderate right AC joint arthrosis and right shoulder degenerative changes as described.
--- NOTE | 2025-04-30 07:05 | ED_ITS ---
Discharge Plan Disposition Patient Disposition: Home, Self-Care Prescriptions Prescriptions: New ibuprofen 800 mg tablet 800 mg PO Q6H PRN (Reason: pain) Qty: 16 0RF methocarbamol 500 mg tablet 1,000 mg PO Q8H PRN (Reason: muscle pain and spasm) Qty: 24 0RF No Action ondansetron HCl 4 mg tablet 4 mg PO Q6H PRN (Reason: nausea and vomiting) Qty: 10 0RF sulfamethoxazole-trimethoprim [Bactrim DS] 800-160 mg tablet 1 tab PO Q12H Qty: 20 0RF mupirocin 2 % ointment 1 applic topical BID Qty: 15 0RF Rx Instructions: apply to abscess bid doxycycline hyclate 100 mg capsule 100 mg PO BID 10 Days Qty: 20 0RF prednisone 50 mg tablet 50 mg PO DAILY 5 Days Qty: 5 0RF dlnlxnervrvdpeq-kqyrcwbtp-XY [Bromfed DM] 2-30-10 mg/5 mL syrup 5 ml PO Q4H PRN (Reason: sinus symptoms) Qty: 118 0RF dexamethasone 6 mg tablet 6 mg PO DAILY Qty: 5 0RF Referrals Follow up/Referrals: Singh Askew DO [Staff Physician, Orthopedics] - See instructions Provider,Referral, MD [Primary Care Provider, Medical] - See instructions Activity Restrictions/Add. Instructions Additional Instructions/Restrictions: At this time it was felt you are safe to be discharged home. If new or worsening symptoms please do not hesitate to return the emergency department. For pain control please take 1000 mg of Tylenol and 800 mg of ibuprofen every 6 hours as needed. You can take your methocarbamol for muscle relaxation as needed as well. Please call and schedule an appointment with Dr. Askew as soon as you are able. Clinical Impressions Clinical Impression: Pain in right shoulder Print Language Print Language: [place] Islander Discharge ED Provider: Newton Small General Adult HPI General Chief complaint: Extremity Injury, Upper Stated complaint: leg pain, R arm pain Time Seen by Provider: 04/30/25 06:58 Mode of Arrival: Wheelchair Source of Information: Patient Description of Symptoms (Recalled from ER Triage Doc. by RN): Pt reports right shoulder pain which began last night, with no injury. History of Present Illness HPI narrative: Patient is 60-year-old male with no pertinent past medical history presents emergency department for evaluation of pain to his right shoulder. Patient has been dealing with polyarthralgias for some time now however over the last couple months has had intermittent shoulder pain. Previously for shoulder pain was triggered by working on a car, yesterday shoulder pain was triggered after mowing her yard. Pain is moderate to severe intensity with associated limited range of motion. No direct trauma. No other acute complaints at this time. Patient has yet to follow-up with orthopedics because his pain went away after last time he was evaluated in the emergency department. Please note that above description of symptoms, in this electronic medical record under categorization of recalled from ER triage doctor by RN are reflective of an initial nursing assessment, however, is not reflective of my full history and physical exam that was personally taken and clarified. Consequentially, this preceding description of symptoms, which may include the patient's categorized chief complaint in the EMR, do not reflect my personal clinical impression, and the ultimate description of history of present illness and patient stated complaints should be deferred to this section of the note. Unless stated otherwise or congruent with this section of the note, additional signs, symptoms, or incongruence should be interpreted as inaccurate with my clinical impression. Related Data Previous Rx's ?Medication ?Instructions ?Recorded ondansetron HCl 4 mg tablet 4 mg PO Q6H PRN nausea and 05/04/23 vomiting #10 tabs mupirocin 2 % topical ointment 1 applic topical BID #1 5 grams 12/19/23 sulfamethoxazole 800 1 tab PO Q12H #20 tabs 12/18 mg-trimethoprim 160 mg tablet (Bactrim DS) bhxiurzziczudoa-iabpksesabwfmhq-IL 5 ml PO Q4H PRN sin us symptoms 12/12/24 2 mg-30 mg-10 mg/5 mL oral syrup #118 mL (Bromfed DM) doxycycline hyclate 100 mg capsule 100 mg PO BID 10 da ys #20 caps 12/12/24 prednisone 50 mg tablet 50 mg PO DAILY 5 days #5 tab s 12/12/24 dexamethasone 6 mg tablet 6 mg PO DAILY #5 tabs ibuprofen 800 mg tablet 800 mg PO Q6H PRN pain #16 t abs 04/30/25 methocarbamol 500 mg tablet 1,000 mg (2 x 500 mg) PO Q 8H PRN 04/30/25 muscle pain and spasm #24 tabs Allergies Allergy/AdvReac Type Severity Reaction Status Date / Time codeine Allergy Mild Nausea Verified 02/11/25 12:20 Penicillins Allergy Hives Verified 02/11/25 12:20 [facility] Disclaimer: The information contained in this section may have been updated after the patient was seen, as this information can be updated by other users. 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: Current every day smoker tobacco type: cigarettes packs per day: 1 alcohol intake: never current occupational status: other Travel in the last 8 weeks?: None Have you lived/traveled outside US in past 30 days?: No Contact w/someone who lives/traveled outside US past 30 days?: No Exposure to someone with infectious disease in past 14 days?: No Do you have a fever (greater than 100.4 F or 38 C)?: No Have you tested positive for COVID-19?: No Exposed to someone with COVID-19 in past 14 days?: No Do you have a sore throat?: No Do you have a cough?: No Do you have any weakness?: No Do you have any diarrhea?: No Are you experiencing any unusual bleeding?: No Do you have any muscle aches/pain?: No Do you have any abdominal pain?: No Are you experiencing loss of taste or smell?: No Other Medical History Have you received the Flu Vaccine for this season: No Have you received the Pneumonia Vaccine: No ROS Obtained: Yes Systems reviewed as appropriate & no additional complaints except as documented Physical Exam General General appearance: alert Head Head exam: atraumatic and normocephalic Eye Eye exam: Present PERRL and EOMI ENT ENT exam: Present mucous membranes moist Neck Neck exam: Present normal inspection Chest Chest inspection: Present normal inspection and symmetric chest wall rise Respiratory Respiratory exam: Absent respiratory distress Cardiovascular Cardiovascular exam: Present regular rate and normal rhythm Extremities Exam Extremities exam: Present normal inspection and other (Palpable right radial pulse. Active range of motion at the hand, elbows preserved. Limited range of motion active and passive at the shoulder secondary to pain. Shoulder is not ex cessively warm or erythematous) Neurological Exam Neurological exam: Present alert Psychiatric Psychiatric exam: Present normal affect Skin Skin exam: Present warm and dry Medical Decision Making Medical Records Screening: Per USPSTF and CDC recommendations, given the prevalence of disease in our region, it is our hospital?s policy to screen for HIV and viral Hepatitis for all patients aged 18 and over and those with ongoing risk factors. Armando Inquiry Pt receiving controlled substance: No Vital Signs: 04/30/25 06:58 Temperature 97.9 F Temperature Source Oral Pulse Rate [Left] 87 Respiratory Rate 16 Blood Pressure [Right Arm] 112/81 Blood Pressure Mean [Right Arm] 91 Blood Pressure Source [Right Arm] Automatic Cuff 02 Sat by Pulse Oximetry 98 Oxygen Delivery Method Room Air Orders (Tests/Meds): ED MEDICATIONS Generic Name Dose Route Start Last Admin Trade Name Freq PRN Reason Stop Dose Admin Methocarbamol 1,000 mg 04/30/25 09:00 04/30/25 07:13 Methocarbamol 500mg Tablet PO 05/30/25 08:59 1,000 mg BID LAONDRA Administration Discontinued Medications Generic Name Dose Route Start Last Admin Trade Name Freq PRN Reason Stop Dose Admin Acetaminophen 1,000 mg 04/30/25 07:03 04/30/25 07:13 Acetaminophen 500mg Tab PO 04/30/25 07:04 1,000 mg ONCE ONE Administration Dexamethasone 10 mg 04/30/25 07:03 04/30/25 07:13 Dexamethasone 4mg Tablet PO 04/30/25 07:04 10 mg ONCE ONE Administration Ketorolac Tromethamine 30 mg 04/30/25 07:03 04/30/25 07:13 Ketorolac 30mg/Ml Vial IM 04/30/25 07:04 30 mg ONCE ONE Administration Lidocaine 1 each 04/30/25 07:03 04/30/25 07:14 Lidocaine 5% Transdermal Patch TD 04/30/25 07:04 1 each ONCE ONE Administration ORDERS Category Date Time Status Shoulder XR right miminum 2 views [XR shoulder RT min Exams 04/30/25 07:03 Taken 2V] Stat Medical Decision Narrative: In summary patient is a 60-year-old male with past medical history described above who presents emergency department for evaluation of shoulder pain. Patient is hemodynamically stable nontoxic-appearing upon arrival, afebrile. Based on history and physical exam I suspect that he has a mechanical cause of his shoulder pain such as osteoarthritis or ligamentous or rotator cuff injury. Patient is distally neurovascularly intact in the right upper extremity. No direct trauma. No fevers or reports of IV drug use. Based in totality on history and physical exam no concern for septic arthritis at this time. Given this limited workup will be conducted with plain film of the right shoulder. Initial inventions include multimodal pain control. Workup hematologic labs and imaging was considered but will be deferred at this point. X-ray informally interpreted by me no acute displaced fracture or dislocation. Given this patient is appropriate for outpatient management at this time will follow-up with Dr. Askew next week. Critical Care Critical Care Time Critical Care Time: No
--- OUTSIDE RECORDS SUMMARY | 2025-04-30 07:05 | XMS_ITS | Clinical Summary ---
[facility] Address [address] [place] [address] Care Team Providers Care Irish Moss Operator Name Role Phone Farshad Becerra MD Primary Care Provider Allergies Active Allergy Reactions Criticality Noted Date Comments Codeine Nausea And Vomiting Medium 07/25/2021 Medications vitamin D (ERGOCALCIFEROL ) 1.25 MG (68753 UT) capsule capsule Take 50,000 Units by mouth Every 7 (Seven) Days. 06/17/2021 Active baclofen (LIORESAL) 10 MG tablet Take 10 mg by mouth Daily. 07/02/2021 Active aspirin (aspirin) 81 MG EC tablet Take 81 mg by mouth Daily. STATES HAS NOT TAKEN SINCE BEFORE PLAVIX AND ONLY TAKES EVERY NOW AND THEN States last dose 11-13-21 07/01/2021 Active etodolac (LODINE) 400 MG tablet Take 400 mg by mouth Daily. 07/02/2021 Active buPROPion XL (WELLBUTRIN XL) 300 MG 24 hr tablet Take 300 mg by mouth Every Morning. 07/02/2021 Active pantoprazole (PROTONIX) 40 MG EC tablet Take 40 mg by mouth Daily. 07/02/2021 Active albuterol sulfate HFA 108 (90 Base) MCG/ACT inhaler Inhale 2 puffs Every 4 (Four) Hours As Needed for Wheezing. Active nicotine (NICODERM CQ) 21 MG/24HR patch Place 1 patch on the skin as directed by provider Daily. 14 patch 1 09/11/2021 2:44 PM EST 09/12/2021 Active traZODone (DESYREL) 150 MG tablet Take 150 mg by mouth Every Night. Active Active Problems Problem Noted Date Diagnosed Date L SFA occlusion 09/10/2021 PAD 09/10/2021 3.5cm spiculated RUL mass 09/10/2021 Smoker 09/10/2021 Dysphonia 09/10/2021 COPD with emphysema 09/10/2021 GERD 09/10/2021 Impaired glucose tolerance (HA1C 6) 09/10/2021 PVD (peripheral vascular disease) 09/10/2021 Ischemic foot pain at rest 08/15/2021 Overview (08/15/2021): Added automatically from request for surgery [id number] Immunizations Immunization Administration Dates Next Due COVID-19 (MODERNA) 1st,2nd,3rd Dose Monovalent 0 03/28/2021,02/28/2021 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 Tobacco Use Types Packs/Day Years Used Date Smoking Tobacco: Every Day Cigarettes 0.3 30 Smokeless Tobacco: Never Comments:Pt states that he o nly smokes 4 or 5 cigarettes a day Alcohol Use Standard Drinks/Week Comments Not Currently 0 (1 standard drink = 0.6 oz pur e alcohol) quit about 1 yr ago Abuse Screen Answer Date Recorded Unsafe at Home or Work/School Not on file Feels Threatened by Someone? Not on file Does Anyone Keep You from Co ntacting Others or Doint Things Outside the Home? Not on file 07/17/2023 Physical Sign of Abuse Present Not on file 1 Housing Stability Answer Date Recorded Current Living Arrangements Not on file 07/05 Potentially Unsafe Housing Conditions Not on elsie e 07/17/2023 Family and Community Support Answer Supa e Recorded Help with Day-to-Day Activities Not on file 07/17/2023 Lonely or Isolated Not on file 07/17/2023 Employment Answer Date Recorded Do you want help finding or keeping work or a el b? Not on file 07/17/2023 Disabilities Answer Date Recorded Concentrating, Remembering, or Making Decisions Difficulty Not on file 07/17/2023 Doing Errands Independently Difficulty Not on fi le 07/17/2023 Education Answer Date Recorded Help with school or training? Not on file Preferred Language Not on file 07/17/2023 Sex and Gender Information Value Date Recorded Sex Assigned at Not on file Legal Sex Male 11:50 AM EDT Gender Identity Not on file Sexual Orientation Not on file Occupation Industry Job Start Date Job End Date Never Worked Before Not on file Not on file Not on f ile Last Filed Vital Signs Vital Sign Reading Time Taken Comments Blood Pressure 132/79 12/05/2021 10:51 AM EST Pulse 88 12/05/2021 10:51 AM EST Temperature 37.1 C (98.8 F) 12/05/2021 10:51 AM EST Respiratory Rate 20 11/19/2021 2:20 PM EST Oxygen Saturation 99% 12/05/2021 10:51 AM EST Inhaled Oxygen Concentration - - Weight 69 kg (152 lb 3.2 oz) 12/05/2021 10:51 AM EST Height 175.3 cm (5' 9 ) 12/05/2021 10:51 AM EST Body Mass Index 22.48 12/05/2021 10:51 AM EST Plan of Treatment Health Maintenance Due Date Last Done Comments COLON CANCER SCREENING 5 YEA R SIGMOIDOSCOPY [address] COLONOGRAPHY 2009 FECAL OCCULT BLOOD TEST 2009 FIT Testing (1 year) 2009 ZOSTER VACCINE (1 of 2) 2014 ANNUAL PHYSICAL 07/25/2021 HEPATITIS C SCREENING 07/25/2021 COLOGUARD 05/31/2022 05/31/2019 COLORECTAL CANCER SCREENING 05/31/2022 COVID-19 Vaccine (5 - 2023-2 5 season) 2024 04/24/2022, 10/23/2021, 03/28/2021, Additional history exists INFLUENZA VACCINE 07/05/2025 08/01/2021, , 10/01/2017, Additional history exists TDAP/TD VACCINES (4 - Td or Tdap) 07/07/2027 07/07/2017, 04/17/2013, 07/22/2009 HEMOGLOBIN A1C Discontinued 09/09/2021 Pneumococcal Vaccine 50+ Completed 04/24/2022, 10/07 Procedures Procedure Name Priority Date/Time Associated Diagnosis Comments HEMOGLOBIN A1C Routine 09/09/2021 12:59 PM EST PVD (peripheral vascular disease) from Last 3 Months or Most Recently Relevant to Health Maintenance Results * (ABNORMAL) Hemoglobin A1c (09/09/2021 12:59 PM EST) Hemoglobin A1C 6.00(H) 4.80 - 5.60 % 09/09/2021 1:39 PM EST [facility] Blood Venipuncture / Unknown 09/09/2021 12:59 PM EST 09/09/2021 1:16 PM EST Narrative [facility] - 09/09/2021 1:39 PM EST Hemoglobin A1C Ranges: Increased Risk for Diabetes 5.7% to 6.4% Diabetes >= 6.5% Diabetic Goal < 7.0% Keturah Gilliland PA-C LAB BLOOD ORDERABLES Final Re sult [facility]
[address] [place] [address], from Last 3 Months or Most Recently Relevant to Health Maintenance Insurance [employer] Advance Directives * CPR (Attempt to Resuscitate) (Latest Code Status on File) Date Activated Date Inactivated Comments 09/10/2021 2:30 PM 09/11/2021 6:29 PM Question Answer Comments Code Status (Patient has no pulse and is not breathing): CPR (Attempt to Resuscitate) Medical Interventions (Patie nt has pulse or is breathing): Full Support Care Teams Irish Moss Operator Relationship Specialty Start Date End Date Farshad Becerra MD [address] [place] [address] PCP - General Family Medicine 07/15/21
--- OUTSIDE RECORDS SUMMARY | 2025-04-30 07:06 | XMS_ITS | Encounter Summary ---
[facility] [address] [place] [id number] Care Team Providers Care Biology Laboratory Assistant Name Role Phone Farshad Becerra MD Primary Care Provider Encounter Details Date Type Department Care Team ([facility] st Contact Info) Description 08/13/[address] [place] [address] Tonny Roberts MD [address] [place] [id number] 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 Tobacco Use Types Packs/Day Years Used Date Smoking Tobacco: Every Day Cigarettes 0.5 30 Smokeless Tobacco: Never Alcohol Use Standard Drinks/Week Comments Not Currently 0 (1 standard drink = 0.6 oz pur e alcohol) quit about 1 yr ago Sex and Gender Information Value Date Recorded Sex Assigned at Not on file Legal Sex Male 11:50 AM EDT Gender Identity Not on file Sexual Orientation Not on file Occupation Industry Job Start Date Job End Date Never Worked Before Not on file Not on file Not on f ile documented as of this encounter Plan of Treatment Not on file documented as of this encounter Visit Diagnoses Not on filedocumented in this encounter Additional Health Concerns Infection Onset Date Last Indicated Resolved Time COVID Screen (preop/placement) 08/07/2021 09/09/2021 09/09/2021 6:24 PM EST COVID Screen (preop/placement) 11/19/2021 11/19/2021 11/19/2021 10:49 AM EST documented as of this encounter Care Teams Biology Laboratory Assistant Relationship Specialty Start Date End Date Farshad Becerra MD [address] [place] [address] PCP - General Family Medicine 07/15/21 documented as of this encounter
--- OUTSIDE RECORDS SUMMARY | 2025-04-30 07:06 | XMS_ITS | Clinical Summary ---
Author Organization [facility] [place] Address [address] [place] [address] Phone Care Team Providers Care Director Of Public Works Name Role Phone Farshad Becerra MD Primary Care Provider Amita Albert [employer] Unavailable [phone] Allergies Active Allergy Reactions Criticality Noted Date [...] right lung 09/10/2021 Overview (04/24/2022): Biopsied at [facility] Benign granuloma Getting repeat CT in 6 mos Following thoracic surgery Assessment & Plan (04/24/2022 10:48 AM EDT): Biopsied at [facility] Benign granuloma Getting repeat CT in 6 mos Following thoracic surgery Superficial femoral artery occlusion 09/10/2021 Overview (01/19/2024): Sp fem pop bypass 09/2021 Vascular surgery -- [facility] Assessment & Plan (04/24/2022 7:08 AM EDT): Sp fem pop bypass 09/2021 Vascular surgery -- [place] Lower extremity arterial insufficiency, severe, left 08/01/2021 Overview (04/24/2022): Sp fem-pop bypass 09/2021 Vascular surgery -- Dr Bunn -- [facility] Assessment & Plan (08/01/2021 1:47 PM EDT): [...] drainage, complex wound closure ; Surgeon: Brandyn Kotahri MD; Location: [facility]IN OR; Service: Hand [...] Date Smoking Tobacco: Every Day Cigarettes 0.3 51.6 Started: 10/05/1973 Passive Smoke Exposure: Past Smokeless Tobacco: Never Tobacco Cessation:Ready to Q uit: Not Asked; Counseling Given: Not Answered Alcohol Use Standard Drinks/Week Comments No 0 (1 standard drink = 0.6 oz pur e alcohol) [facility] Utilities Answer Date Recorded In the past 12 months has [employer], gas, oil, or water [employer] threatened to shut off services in your home? No 11/27/2023 Overall Financial Resource Strain (CARDIA) Answe r Date Recorded How hard is it for you to pa y for the very basics like food, housing, medical care, and heating? Not hard at all 11/27/2023 PHQ-2 Answer Date Recorded PHQ-2 Total Score 0 12/02/2024 [facility] - Occupational Stress [...] 12/02/2024 2:17 PM EST Plan of Treatment Upcoming Encounters Date Type Department Care Team (Late st Contact Info) Description 05/02/2025 9:30 AM EDT Office Visit [facility] [address] [place] [address] Gordy Watson MD [address] [place] [address] Health Maintenance Due Date Last Done Comments Colonoscopy 2009 FIT 2009 Sigmoidoscopy 2009 Virtual Colonography 2009 Zoster (1 of 2) 2014 Cologuard 05/31/2022 05/31/2019 Colon Cancer Screening 05/31/2022 RSV or 60+ (1 - Risk 60-74 years 1-dose series) 2024 Hepatitis B Vaccine (2 of 2 - CpG 2-dose series) 04/04/2024 03/07/2024 COVID-19 Vaccine ( season) 2024 03/07/2024, 04/24/2022, 10/23/2021, Additional history exists Annual Wellness Exam 03/07/2025 03/07/2024, 11/07/2022, 08/01/2021, Additional history exists Influenza Vaccine (#1) 2025 , 12/01/2023, 08/01/2021, Additional history exists DTaP/TDaP/Td (3 - Td or Tdap) 07/07/2027 07/07/2017, 04/17/2013 Hepatitis C Screening Completed 11/04/2016 Pneumococcal Vaccine 50+ Completed 04/24/2022, 10/07 Meningococcal B Vaccine Aged Out No l [...] Farshad Becerra MD HEMATOLOGY ORDERABLES Final Result [facility] [address] [place] [address] from Last 3 Months or Most Recently Relevant to Health Maintenance Insurance [facility] [address] [place] [id number] [place] [address] [facility] [place] [id number] [place] [address] * Guarantor: TRAE RANDLE Account Type Relation to Patient Date of Phone Billing Address [place] Personal Family 1965 [address] [address], [place] [address] [place] [address] [employer] [place] [id number] Care Teams Director Of Public Works Relationship Specialty Start Date End Date Farshad Becerra MD [address] [place] [address] PCP - General Family Medicine 07/03/15 Amita Albert APRN [address] [place] [address] Nurse Practitioner 02/20/17
--- OUTSIDE RECORDS SUMMARY | 2025-04-30 07:06 | XMS_ITS | Encounter Summary ---
[facility] [address] [place] [address] Care Team Providers Care Dining Room Coordinator Name Role Phone Farshad Becerra MD Primary Care Provider Encounter Details Date Type Department Care Team ([facility] st Contact Info) Description 10/14/2021 Telephone [facility] [address] [place] [address] Tonny Roberts MD [address] [place] [address] 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 Tobacco Use Types Packs/Day [...] Last Indicated Resolved Time COVID Screen (preop/placement) 11/19/2021 11/19/2021 11/19/2021 10:49 AM EST documented as of this encounter Care Teams Dining Room Coordinator Relationship Specialty Start Date End Date Farshad Becerra MD [address] [place] [address] PCP - General Family Medicine 07/15/21 documented as of this encounter
--- NOTE | 2025-04-30 07:11 | PC.NURSE ---
Patient going to radiology
[2025-04-30] MEDS: ACETAMINOPHEN 500MG TAB 1000 MG PO (07:13)
[2025-04-30] MEDS: METHOCARBAMOL 500MG TABLET 1000 MG PO (07:13)
[2025-04-30] MEDS: DEXAMETHASONE 4MG TABLET 10 MG PO (07:13)
[2025-04-30] MEDS: KETOROLAC 30MG/ML VIAL 30 MG IM (07:13)
[2025-04-30] MEDS: LIDOCAINE 5% TRANSDERMAL PATCH 1 EACH TD (07:14)
--- NOTE | 2025-04-30 07:20 | PC.NURSE ---
pt back from radiology
[2025-04-30 07:34] VITALS: BP 148/79; PULSE 80; RESP 20; TEMP 36.7; O2SAT 98
== END 2025-04-30 07:34 | disposition home or self-care (01) ==
PROVIDERS: Emergency Provider Emergency Medicine
DX: M25.511 Pain in right shoulder (principal); F17.210 Nicotine dependence, cigarettes, uncomplicated
CPT/HCPCS: 73030; 96372; 99283; J1885; J8540